=== PATIENT | female | born 1955 | race Caucasian/White ===

== ENCOUNTER 2017-01-09 20:22 | Inpatient (IN) | payer MEDICARE, OTHER ==
[~2017-01-09 20:22] MED LIST: ACET325T9 PO; ACYC200C PO; ASPI325T8 PO; BISA10SU2 RC; BISA10SU55 RC; CALC-56 PO; CALC500O PO; CALC500T PO; CALC500T54 PO; CELE50CA PO; CHOL10002 PO; CITA20TA9 PO; FELB400T2 PO; FERR-26 PO; FERR325T72 PO; LACO150T PO; LACO50TA PO; LEVE100020 PO; LEVE500T56 PO; LOPE2TAB27 PO; MAGN200T PO; MAGN2400 PO; MAGN400O7 PO; MAGN400T22 PO; MULT1TAB90 PO; OLAN2.5T3 PO; OXYC5TAB PO; PHEN32.42 PO; POLY119P4 PO; POLY17PO29 PO; POTA20TA4 PO; QUET25TA5 PO; SENN1TAB15 PO; SENN8.6C2 PO; TRAM50TA PO; VENL37.5 PO; VENL75CA PO
--- NOTE | 2017-01-09 20:27 | PHYS DOC ---
Past Medical History Past Medical History: Anemia, Arthritis, Constipation, Dementia, Depression, Hip Fracture, Seizure, UTI Additional Past Medical Histor: GENERAL DEBILITY, CHRONIC PAIN, hypokalemia Past Surgical History: Hip Replacement Additional Past Surgical Histo: STIMULATOR FOR SEIZURE CONTROL, R tibula fx Alcohol Use: None Drug Use: None Adult General Chief Complaint Chief Complaint: altered mental status [facility] Patient is a 61 year old female who presents with with mental status. According to the [place] facility patient is usually alert and oriented 3 she had a witnessed fall today and now is only alert to herself. She denies a headache, fevers chills nausea vomiting, neck stiffness, shortness of breath or chest pain. Review of Systems Review of Systems Constitutional: Denies fever or chills [] Eyes: Denies change in visual acuity, redness, or eye pain [] HENT: Denies nasal congestion or sore throat [] Respiratory: Denies cough or shortness of breath [] Cardiovascular: No additional information not addressed in HPI [] GI: Denies abdominal pain, nausea, vomiting, bloody stools or diarrhea [] : Denies dysuria or hematuria [] Musculoskeletal: Denies back pain or joint pain [] Integument: Denies rash or skin lesions [] Neurologic: Denies headache, focal weakness or sensory changes [] Endocrine: Denies polyuria or polydipsia [] Current Medications Current Medications Allergies Allergies Allergies Coded Allergies Type Severity Reaction Last Updated Verified clobazam Allergy Intermediate 12/17/15 Yes hydrocodone Allergy Intermediate 12/17/15 Yes vancomycin Allergy Intermediate 12/17/15 Yes Physical Exam Physical Exam Constitutional: Well developed, well nourished, no acute distress, non-toxic appearance. [] HENT: Normocephalic, atraumatic, bilateral external ears normal, oropharynx moist, no oral exudates, nose normal. [] Eyes: PERRLA, EOMI, conjunctiva normal, no discharge. [] Neck: Normal range of motion, no tenderness, supple, no stridor. [] Cardiovascular:Heart rate regular rhythm, no murmur [] Lungs & Thorax: Bilateral breath sounds clear to auscultation [] Abdomen: Bowel sounds normal, soft, no tenderness, no masses, no pulsatile masses. [] Skin: Warm, dry, no erythema, no rash. [] Back: No tenderness, no CVA tenderness. [] Extremities: No tenderness, no cyanosis, no clubbing, ROM intact, no edema. [] Neurologic: Alert and oriented X 1, normal motor function, normal sensory function, no focal deficits noted. [] Current Patient Data Vital Signs Vital Signs Date Time Temp Pulse Resp B/P (MAP) Pulse Ox O2 Delivery O2 Flow Rate FiO2 01/09/17 20:28 98.2 86 20 144/85 (104) 95 Room Air 98.2 Lab Values Laboratory Tests Test 01/09/17 21:43 01/09/17 21:55 O2 Saturation 94 % (92-99) Arterial Blood pH 7.44 (7.35-7.45) Arterial Blood pCO2 at Patient Temp 48 mmHg (35-46) H Arterial Blood pO2 at Patient Temp 74 mmHg (65-108) Arterial Blood HCO3 32 mmol/L (21-28) H Arterial Blood Base Excess 6 mmol/L (-3-3) H Oxyhemoglobin 93.7 % Methemoglobin 0.5 % (0.0-1.9) Carbon Monoxide, Quantitative 0.1 % (0.0-1.9) FiO2 21.0 Prothrombin Time 12.4 SEC (11.7-14.0) Prothrombin Time INR 1.0 (0.8-1.1) PTT 28 SEC (24-38) Urine Collection Type U cath Urine Color Yellow Urine Clarity Turbid Urine pH 8.0 Urine Specific [place] 1.025 Urine Protein Negative mg/dL (NEG-TRACE) Urine Glucose (UA) Negative mg/dL (NEG) Urine Ketones (Stick) Negative mg/dL (NEG) Urine Blood Negative (NEG) Urine Nitrite Positive (NEG) Urine Bilirubin Negative (NEG) Urine Urobilinogen Dipstick 0.2 mg/dL (0.2 mg/dL) Urine Leukocyte Esterase Small (NEG) Urine RBC 0 /HPF (0-2) Urine WBC 1-4 /HPF (0-4) Urine Squamous Epithelial Cells Few /LPF Urine Bacteria Many /HPF (0-FEW) Urine Mucus Slight /LPF Urine Opiates Screen Neg (NEG) Urine Methadone Screen Neg (NEG) Urine Barbiturates Pos (NEG) Urine Phencyclidine Screen Neg (NEG) Urine Amphetamine/Methamphetamine Neg (NEG) Urine Benzodiazepines Screen Neg (NEG) Urine Cocaine Screen Neg (NEG) Urine Cannabinoids Screen Neg (NEG) Urine Ethyl Alcohol Neg (NEG) EKG EKG EKG shows sinus rhythm with a rate of 85 bpm, no ST elevations or T-wave inversions appreciated, artifact noted in 1, aVR, aVL, lead 3, aVF, normal axis , QTC 407 ms, as interpreted by me. Radiology/Procedures Radiology/Procedures [facility] [address] [place] [address] IMAGING REPORT Signed PATIENT: KEVON ECKERT ACCOUNT: [id number] : 1955 LOCATION: ER AGE: 61 SEX: F EXAM STATUS: REG ER ORD. PHYSICIAN: LINDA BUSBY MD REASON: AMS after fall PROCEDURE: CT HEAD AND CERVICAL SPINE WO CT Head W/O Contrast: History: ams, fall Comparison: July 04, 2013 Axial images were obtained without contrast. There has been prior left craniotomy. There is moderate diffuse atrophy. There is no mass effect, extraaxial fluid collections or hydrocephalus. There is no gross bleed. Mild, patchy periventricular and subcortical white matter hypoattenuation is seen. There is no focal loss of lewis-white matter distinction to suggest acute ischemia, i.e. stroke. Impression: No acute findings. End impression CT C-Spine without contrast: Clinical History: ams, fall Technique: Axial helical images of the cervical spine were obtained without contrast, axial coronal and sagittal reconstruction was performed. Findings: There is no loss of vertebral body stature. There is no prevertebral soft tissue swelling. The vertebral bodies are well aligned. The C1-C2 relationship is normal. The visualized osseous structures appear normal. Evaluation of the central canal is limited without contrast. There is multiple posterior disc bulges resulting in flattening of the thecal sac. There does not appear to be gross flattening of the cervical cord. There is moderate narrowing of multiple neuroforamen. Impression: No acute findings. Clinical correlation suggested. PQRS Compliance Statement: One or more of the following individualized dose reduction techniques were utilized for this examination: 1. Automated exposure control 2. Adjustment of the mA and/or kV according to patient size 3. Use of iterative reconstruction technique Electronically signed by: Elsa Colunga III, MD (01/09/2017 9:13 PM) [facility] DICTATED and SIGNED BY: ELSA COLUNGA III, MD DATE: 01/09/172107 CC: LINDA BUSBY MD; TYLER OGDEN MD ~ Impressions: Altered mental status UTI Seizure disorder Course & Med Decision Making Course & Med Decision Making Pertinent Labs and Imaging studies reviewed. (See chart for details) CT head, chest x-ray nonacute, lactic acid and vitals within normal limits. Do not find any abnormalities on physical exam, her neck is supple, she is following directions but is just oriented 1. I've ordered blood cultures, urine does show signs of infection I recommend sure this is the actual source of her confusion. Per [facility] her confusion started after she fell. We'll start Rocephin and admit for monitoring. Interim orders have been written and spoke with Dr. Ogden. Kimi Disclaimer Kimi Disclaimer This electronic medical record was generated, in whole or in part, using a voice recognition dictation system. Departure Departure Impression: Primary Impression: Altered mental state Disposition: 09 ADMITTED INPATIENT Admitting Physician: Tyler Ogden Condition: STABLE Referrals: TYLER OGDEN MD (PCP) Problem Qualifiers Primary Impression: Altered mental state Altered mental status type: unspecified Qualified Codes: R41.82 - Altered mental status, unspecified LINDA BUSBY MD Jan 09, 2017 20:27
--- NOTE | 2017-01-09 21:16 | RAD ---
CT Head W/O Contrast: History: ams, fall Comparison: July 04, 2013 Axial images were obtained without contrast. There has been prior left craniotomy. There is moderate diffuse atrophy. There is no mass effect, extraaxial fluid collections or hydrocephalus. There is no gross bleed. Mild, patchy periventricular and subcortical white matter hypoattenuation is seen. There is no focal loss of lewis-white matter distinction to suggest acute ischemia, i.e. stroke. Impression: No acute findings. End impression CT C-Spine without contrast: Clinical History: ams, fall Technique: Axial helical images of the cervical spine were obtained without contrast, axial coronal and sagittal reconstruction was performed. Findings: There is no loss of vertebral body stature. There is no prevertebral soft tissue swelling. The vertebral bodies are well aligned. The C1-C2 relationship is normal. The visualized osseous structures appear normal. Evaluation of the central canal is limited without contrast. There is multiple posterior disc bulges resulting in flattening of the thecal sac. There does not appear to be gross flattening of the cervical cord. There is moderate narrowing of multiple neuroforamen. Impression: No acute findings. Clinical correlation suggested. PQRS Compliance Statement: One or more of the following individualized dose reduction techniques were utilized for this examination: 1. Automated exposure control 2. Adjustment of the mA and/or kV according to patient size 3. Use of iterative reconstruction technique Electronically signed by: Nnamdi Mcghee III, MD (01/09/2017 9:13 PM) [facility]
[2017-01-09 21:50] LABS: BASE EXCESS COOX 6 mmol/L (-3-3); CARBON MONOXIDE 0.1 % (0.0-1.9); HCO3 COOX 32 mmol/L (21-28); METHEMOGLOBIN 0.5 % (0.0-1.9); OXYHEMOGLOBIN 93.7 %; PCO2 COOX 48 mmHg (35-46); PO2 COOX 74 mmHg (65-108); SAT O2 COOX 94 % (92-99); TOTAL HEMOGLOBIN 13.7 g/dL
[2017-01-09 21:51] LABS: PH COOX 7.44 (7.35-7.45)
[2017-01-09 22:08] LABS: BILIRUBIN,URINE NEGATIVE (NEG); GLUCOSE,URINE NEGATIVE (NEG); NITRITE,URINE POSITIVE (NEG); PROTEIN,URINE NEGATIVE (NEG-TRACE); UROBILINOGEN,URINE 0.2 mg/dL (0.2 mg/dL)
[2017-01-09 22:11] LABS: PROTHROMBIN TIME PATIENT 12.4 SEC (11.7-14.0)
[2017-01-09 22:14] LABS: BACTERIA,URINE MANY /HPF (0-FEW); RBC,URINE 0 /HPF (0-2); SQUAMOUS EPITHELIAL CELL,UR FEW /LPF
[2017-01-09 22:21] LABS: BARBITURATES POS (NEG); BENZODIAZEPINES NEG (NEG); CANNABINOIDS NEG (NEG); COCAINE NEG (NEG); METHADONE NEG (NEG); OPIATES NEG (NEG); PHENCYCLIDINE NEG (NEG)
[2017-01-09 22:48] LABS: BASO % 1 % (0-3); EOS % 1 % (0-3); HEMOGLOBIN 12.6 g/dL (12.0-15.5); LYMPH # 0.8 x10^3/uL (1.0-4.8); LYMPH % 17 % (24-48); MEAN CORPUSCULAR HEMOGLOBIN 34 pg (25-35); MEAN CORPUSCULAR HGB CONC 35 g/dL (31-37); MEAN CORPUSCULAR VOLUME 98 fL (79-100); MONO % 8 % (0-9); NEUT % 74 % (31-73); PLATELET COUNT 185 x10^3/uL (140-400); RED BLOOD COUNT 3.68 x10^6/uL (3.50-5.40); RED CELL DISTRIBUTION WIDTH 12.8 % (11.5-14.5); WHITE BLOOD COUNT 5.1 x10^3/uL (4.0-11.0)
[2017-01-09 23:06] LABS: CREATININE 0.6 mg/dL (0.6-1.0); POTASSIUM 3.9 mmol/L (3.5-5.1)
[2017-01-09 23:15] LABS: CKMB MASS 0.7 ng/mL (0.0-3.6)
[2017-01-09 23:16] LABS: ALBUMIN 3.4 g/dL (3.4-5.0); DIRECT BILIRUBIN 0.1 mg/dL (0.0-0.2); TOTAL BILIRUBIN 0.2 mg/dL (0.2-1.0); TOTAL PROTEIN 6.6 g/dL (6.4-8.2)
[2017-01-09] MEDS ORDERED: IV DEXTROSE 5 %-0.45 % NACL 1,000 ML IV ONE (23:30)
[2017-01-09] MEDS ORDERED: ONDANSETRON PF 4 MG/2 ML VIAL. IV PRN (23:30)
[2017-01-10 01:18] VITALS: BP 119/57
[2017-01-10] MEDS ORDERED: ATOR10TA PO (01:52)
[2017-01-10] MEDS ORDERED: POTASSIUM CHLO10 MEQ PO (01:52)
[2017-01-10 03:22] VITALS: BP 112/63
[2017-01-10 04:32] LABS: BASO # 0.1 x10^3/uL (0.0-0.2); BASO % 1 % (0-3); EOS % 4 % (0-3); HEMATOCRIT 36.2 % (36.0-47.0); HEMOGLOBIN 12.2 g/dL (12.0-15.5); LYMPH # 1.5 x10^3/uL (1.0-4.8); LYMPH % 30 % (24-48); MEAN CORPUSCULAR HEMOGLOBIN 34 pg (25-35); MEAN CORPUSCULAR HGB CONC 34 g/dL (31-37); MEAN CORPUSCULAR VOLUME 101 fL (79-100); MONO % 11 % (0-9); NEUT % 53 % (31-73); PLATELET COUNT 171 x10^3/uL (140-400); RED CELL DISTRIBUTION WIDTH 12.8 % (11.5-14.5); WHITE BLOOD COUNT 5.1 x10^3/uL (4.0-11.0)
[2017-01-10 04:52] LABS: CALCIUM 8.5 mg/dL (8.5-10.1); CREATININE 0.6 mg/dL (0.6-1.0); POTASSIUM 3.4 mmol/L (3.5-5.1)
--- NOTE | 2017-01-10 05:36 | ACF ---
Admission Forms Criteria MENTAL STATUS CHANGE Clinical Indications for Inpatient Care (Place 'X' for any and all applicable criteria): Ongoing inpatient care may be needed for 1 or more of the following(1)(2)(3)(5)( 6): [ X]I. Suspected serious etiology (eg, medical disorder, NETWORK SUPPORT ADMINISTRATOR event) of altered mental status [ ]II. Danger to self or others not manageable at lower level of care [ ]III. Grave disability (eg, inability to perform self care necessary at lower level of care) [ ]IV. Agitation or inappropriate behavior interfering with care for primary condition (eg, attempting to discontinue lines or drains prematurely, unable to cooperate with respiratory care) [ ]V. Delirium [A] [D][E] as described by 1 or more of the following(26): [ ]a) Delirium due to alcohol or sedative [F] withdrawal [ ]b) Delirium of uncertain etiology that has not responded to appropriate empiric treatment [ ]c) Delirium that prevents performance of a life-sustaining function (eg, feeding or hydrating oneself) [ ]. General contraindications and/or Inappropriate clinical situations for Observational Care in patients with Mental Status Change, when ANY ONE of the following is required: [ ]a) Prediction of prolongation of LOS based on ANY ONE of the following may be considered as a contraindication for observational care 2, 3, 4, 5, 6, 7, 8, 9, 10, 11 [ ]i) Age > 65 yrs. [ ]ii) Patient arriving by ambulance [ ]iii) Patient with high acuity [ ]iv) Patient requiring vital sign monitoring [ ]v) Patient on IV medication [ ]b) Systolic blood pressures greater than or equal to 180mmHg 3, 12 [ ]c) Patient with altered mental status including delirium and other alteration of consciousness, (3) [ ]d) Patient whose discharge disposition will be to a fdc home or rehabilitation home should not be managed in Emergency Department Observation Unit. CMS rule requires 3 days hospital stay before such placement.3,13 [ ]e) Patient with failure to thrive due to broad array of etiologies 3,16,17 [ ]f) Inability to ambulate 3,14 Extended stay beyond goal length of stay for the primary condition may be needed until ALL of the following are present(3)(5): [ ]a) Underlying medical etiology of mental status change is absent, or has been established and adequately treated [ ]b) Danger to self or others is absent or manageable at lower level of care. [ ]c) Behavior crisis management, including physical or chemical restraints, is not required or available at lower level of car [ ]d) Substance or alcohol withdrawal is absent or manageable at lower level of care. [ ]e) Behavioral symptoms (eg, agitation, somnolence, inappropriate behavior) are absent, or are manageable at lower level of care. The original [facility] [employer] content created by [facility] has been revised. The portions of the content which have been revised are identified through the use of italic text or in bold, and [facility] has neither reviewed nor approved the modified material. All other unmodified content is copyright [facility]. Please see references footnoted in the original [facility] edition 2016 Admission Criteria Met?: Yes AMINATA BOONE Jan 10, 2017 05:36
--- NOTE | 2017-01-10 06:12 | EKG ---
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
--- NOTE | 2017-01-10 06:21 | EKG ---
[facility] [address] [place] [address] Test Date: 2017-01-09 Test Time: 21:39:02 Pat Name: KEVON ECKERT Department: Room: 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
--- NOTE | 2017-01-10 07:23 | RAD ---
Exam performed: One view chest. Indication: AMS Date of Service: 01/09/2017 10:30 PM Comparison: None available. Single AP upright portable view chest findings: Cardiomediastinal silhouette is within limits of normal. No acute infiltrates, effusion or pneumothorax is detected. There is a bilaterally PAC with a lead extending into the neck. The bony structures are normal. Impression: No acute cardiopulmonary process is detected.
[2017-01-10 07:45] VITALS: BP 114/74
--- NOTE | 2017-01-10 09:28 | PDOC ---
Provider Note Provider Note Patient seen. see History and Physical. Mental status already improving. Patient denies any seizures. Possible UTI. The patient was seen and examined by me. Chart reviewed and plan of care formulated. Discussed with, reviewed and agree with MANUFACTURER REPRESENTATIVE's notes, plan of care and orders with modifications as necessary. For more details regarding further plans, please refer to the orders. JENI TORRES MD Jan 10, 2017 09:27
[2017-01-10] MEDS ORDERED: POLYETHYLENE GLYCOL 3350 17 GM PACKET. PO PRN (09:30)
[2017-01-10] MEDS ORDERED: MAGNESIUM HYDROXIDE 2,400 MG/30 ML ORAL.SUSP. PO PRN (09:30)
[2017-01-10] MEDS ORDERED: ACETAMINOPHEN 325 MG TABLET. PO PRN (09:30)
[2017-01-10] MEDS ORDERED: SENNOSIDES/DOCUSATE 8.6/50MG TABLET. PO PRN (09:30)
[2017-01-10] MEDS ORDERED: BISACODYL 10 MG SUPP.RECT. RC SCH (09:30)
--- NOTE | 2017-01-10 09:57 | PDOC1 ---
HISTORY AND PHYSICAL Chief Complaint Chief Complaint This 61 year old female has been admitted with a chief complaint of altered mental status after witnessed fall. She has a history of seizures with falls. EMS transferred her to [facility] ED. In the ED she was responsive to name only. A CT of the head was negative. CT of the cervical spine negative. UA was positive for nitrate. She received IVF and Rocephin in the ED and is admitted for further evaluation and treatment. 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 ) Musculoskeletal: Other (h/o tib fib fracture post fall; hip fracture ) Renal/: Chronic renal insuff (CKD II ), UTI (h/o ) Past Surgical History Past Surgical History: Total hip replacement Past Family History Family History: Family History Unknown Past Social History PSH no h/o tobacco, ETOH or illicit drug use. Review of Symptoms Review of Symptoms A 14 point ROS was completed with the following noted as positive: nods no to pain, not communicative. Other systems reviewed and negative. attempted, not cooperating Medications Medications reviewed and reconciled. Allergy Allergies Coded Allergies Type Severity Reaction Last Updated Verified clobazam Allergy Intermediate 12/17/15 Yes hydrocodone Allergy Intermediate 12/17/15 Yes vancomycin Allergy Intermediate 12/17/15 Yes Physical Exam Physical Exam General appearance - alert, chronically ill appearing, and in no distress Mental Status - alert, oriented to person, place, and time, affect appropriate to mood Head - normal Chest - clear to auscultation, no wheezes, rales or rhonchi, symmetric air entry Heart - S1 and S2 normal Abdomen - soft, nontender, nondistended, BS + Neurological - no acute neurological deficit deficit noted. Musculoskeletal - no muscular tenderness noted Extremities - no pedal edema Skin - warm and dry VTE Prophylaxis Ordered VTE Prophylaxis Devices: Yes VTE Pharmacological Prophylaxi: No Assessment Labs Laboratory Tests Test 01/09/17 21:43 01/09/17 21:55 01/09/17 22:35 01/10/17 03:50 O2 Saturation 94 % (92-99) Arterial Blood pH 7.44 (7.35-7.45) Arterial Blood pCO2 at Patient Temp 48 mmHg (35-46) Arterial Blood pO2 at Patient Temp 74 mmHg (65-108) Arterial Blood HCO3 32 mmol/L (21-28) Arterial Blood Base Excess 6 mmol/L (-3-3) Oxyhemoglobin 93.7 % Methemoglobin 0.5 % (0.0-1.9) Carbon Monoxide, Quantitative 0.1 % (0.0-1.9) FiO2 21.0 Prothrombin Time 12.4 SEC (11.7-14.0) Prothromb Time International Ratio 1.0 (0.8-1.1) Activated Partial Thromboplast Time 28 SEC (24-38) Urine Collection Type U cath Urine Color Yellow Urine Clarity Turbid Urine pH 8.0 Urine Specific [place] 1.025 Urine Protein Negative mg/dL (NEG-TRACE) Urine Glucose (UA) Negative mg/dL (NEG) Urine Ketones (Stick) Negative mg/dL (NEG) Urine Blood Negative (NEG) Urine Nitrite Positive (NEG) Urine Bilirubin Negative (NEG) Urine Urobilinogen Dipstick 0.2 mg/dL (0.2 mg/dL) Urine Leukocyte Esterase Small (NEG) Urine RBC 0 /HPF (0-2) Urine WBC 1-4 /HPF (0-4) Urine Squamous Epithelial Cells Few /LPF Urine Bacteria Many /HPF (0-FEW) Urine Mucus Slight /LPF Urine Opiates Screen Neg (NEG) Urine Methadone Screen Neg (NEG) Urine Barbiturates Pos (NEG) Urine Phencyclidine Screen Neg (NEG) Urine Amphetamine/Methamphetamine Neg (NEG) Urine Benzodiazepines Screen Neg (NEG) Urine Cocaine Screen Neg (NEG) Urine Cannabinoids Screen Neg (NEG) Urine Ethyl Alcohol Neg (NEG) White Blood Count 5.1 x10^3/uL (4.0-11.0) 5.1 x10^3/uL (4.0-11.0) Red Blood Count 3.68 x10^6/uL (3.50-5.40) 3.60 x10^6/uL (3.50-5.40) Hemoglobin 12.6 g/dL (12.0-15.5) 12.2 g/dL (12.0-15.5) Hematocrit 36.0 % (36.0-47.0) 36.2 % (36.0-47.0) Mean Corpuscular Volume 98 fL (79-100) 101 fL (79-100) Mean Corpuscular Hemoglobin 34 pg (25-35) 34 pg (25-35) Mean Corpuscular Hemoglobin Concent 35 g/dL (31-37) 34 g/dL (31-37) Red Cell Distribution Width 12.8 % (11.5-14.5) 12.8 % (11.5-14.5) Platelet Count 185 x10^3/uL (140-400) 171 x10^3/uL (140-400) Neutrophils (%) (Auto) 74 % (31-73) 53 % (31-73) Lymphocytes (%) (Auto) 17 % (24-48) 30 % (24-48) Monocytes (%) (Auto) 8 % (0-9) 11 % (0-9) Eosinophils (%) (Auto) 1 % (0-3) 4 % (0-3) Basophils (%) (Auto) 1 % (0-3) 1 % (0-3) Neutrophils # (Auto) 3.7 x10^3uL (1.8-7.7) 2.7 x10^3uL (1.8-7.7) Lymphocytes # (Auto) 0.8 x10^3/uL (1.0-4.8) 1.5 x10^3/uL (1.0-4.8) Monocytes # (Auto) 0.4 x10^3/uL (0.0-1.1) 0.6 x10^3/uL (0.0-1.1) Eosinophils # (Auto) 0.1 x10^3/uL (0.0-0.7) 0.2 x10^3/uL (0.0-0.7) Basophils # (Auto) 0.0 x10^3/uL (0.0-0.2) 0.1 x10^3/uL (0.0-0.2) Sodium Level 141 mmol/L (136-145) 140 mmol/L (136-145) Potassium Level 3.9 mmol/L (3.5-5.1) 3.4 mmol/L (3.5-5.1) Chloride Level 104 mmol/L (98-107) 103 mmol/L (98-107) Carbon Dioxide Level 30 mmol/L (21-32) 32 mmol/L (21-32) Anion Gap 7 (6-14) 5 (6-14) Blood Urea Nitrogen 20 mg/dL (7-20) 19 mg/dL (7-20) Creatinine 0.6 mg/dL (0.6-1.0) 0.6 mg/dL (0.6-1.0) Estimated GFR (Cockcroft-Gault) 101.0 101.0 Glucose Level 112 mg/dL (70-99) 104 mg/dL (70-99) Lactic Acid Level 0.7 mmol/L (0.4-2.0) Calcium Level 9.0 mg/dL (8.5-10.1) 8.5 mg/dL (8.5-10.1) Magnesium Level 2.0 mg/dL (1.8-2.4) Total Bilirubin 0.2 mg/dL (0.2-1.0) Direct Bilirubin 0.1 mg/dL (0.0-0.2) Aspartate Amino Transf (AST/SGOT) 35 U/L (15-37) Alanine Aminotransferase (ALT/SGPT) 41 U/L (14-59) Alkaline Phosphatase 153 U/L (46-116) Ammonia 23 mcmol/L (11-34) Creatine Kinase 155 U/L (26-192) Creatine Kinase MB (Mass) 0.7 ng/mL (0.0-3.6) Creatine Kinase MB Relative Index 0.5 % (0-4) Troponin I Quantitative < 0.017 ng/mL (0.000-0.055) EG-Kdc-Q-Type Natriuretic Peptide 67 pg/mL (0-124) Total Protein 6.6 g/dL (6.4-8.2) Albumin 3.4 g/dL (3.4-5.0) Laboratory Tests Test 01/09/17 21:43 01/09/17 21:55 01/09/17 22:35 01/10/17 03:50 O2 Saturation 94 % (92-99) Arterial Blood pH 7.44 (7.35-7.45) Arterial Blood pCO2 at Patient Temp 48 mmHg (35-46) Arterial Blood pO2 at Patient Temp 74 mmHg (65-108) Arterial Blood HCO3 32 mmol/L (21-28) Arterial Blood Base Excess 6 mmol/L (-3-3) Oxyhemoglobin 93.7 % Methemoglobin 0.5 % (0.0-1.9) Carbon Monoxide, Quantitative 0.1 % (0.0-1.9) FiO2 21.0 Prothrombin Time 12.4 SEC (11.7-14.0) Prothromb Time International Ratio 1.0 (0.8-1.1) Activated Partial Thromboplast Time 28 SEC (24-38) Urine Collection Type U cath Urine Color Yellow Urine Clarity Turbid Urine pH 8.0 Urine Specific [place] 1.025 Urine Protein Negative mg/dL (NEG-TRACE) Urine Glucose (UA) Negative mg/dL (NEG) Urine Ketones (Stick) Negative mg/dL (NEG) Urine Blood Negative (NEG) Urine Nitrite Positive (NEG) Urine Bilirubin Negative (NEG) Urine Urobilinogen Dipstick 0.2 mg/dL (0.2 mg/dL) Urine Leukocyte Esterase Small (NEG) Urine RBC 0 /HPF (0-2) Urine WBC 1-4 /HPF (0-4) Urine Squamous Epithelial Cells Few /LPF Urine Bacteria Many /HPF (0-FEW) Urine Mucus Slight /LPF Urine Opiates Screen Neg (NEG) Urine Methadone Screen Neg (NEG) Urine Barbiturates Pos (NEG) Urine Phencyclidine Screen Neg (NEG) Urine Amphetamine/Methamphetamine Neg (NEG) Urine Benzodiazepines Screen Neg (NEG) Urine Cocaine Screen Neg (NEG) Urine Cannabinoids Screen Neg (NEG) Urine Ethyl Alcohol Neg (NEG) White Blood Count 5.1 x10^3/uL (4.0-11.0) 5.1 x10^3/uL (4.0-11.0) Red Blood Count 3.68 x10^6/uL (3.50-5.40) 3.60 x10^6/uL (3.50-5.40) Hemoglobin 12.6 g/dL (12.0-15.5) 12.2 g/dL (12.0-15.5) Hematocrit 36.0 % (36.0-47.0) 36.2 % (36.0-47.0) Mean Corpuscular Volume 98 fL (79-100) 101 fL (79-100) Mean Corpuscular Hemoglobin 34 pg (25-35) 34 pg (25-35) Mean Corpuscular Hemoglobin Concent 35 g/dL (31-37) 34 g/dL (31-37) Red Cell Distribution Width 12.8 % (11.5-14.5) 12.8 % (11.5-14.5) Platelet Count 185 x10^3/uL (140-400) 171 x10^3/uL (140-400) Neutrophils (%) (Auto) 74 % (31-73) 53 % (31-73) Lymphocytes (%) (Auto) 17 % (24-48) 30 % (24-48) Monocytes (%) (Auto) 8 % (0-9) 11 % (0-9) Eosinophils (%) (Auto) 1 % (0-3) 4 % (0-3) Basophils (%) (Auto) 1 % (0-3) 1 % (0-3) Neutrophils # (Auto) 3.7 x10^3uL (1.8-7.7) 2.7 x10^3uL (1.8-7.7) Lymphocytes # (Auto) 0.8 x10^3/uL (1.0-4.8) 1.5 x10^3/uL (1.0-4.8) Monocytes # (Auto) 0.4 x10^3/uL (0.0-1.1) 0.6 x10^3/uL (0.0-1.1) Eosinophils # (Auto) 0.1 x10^3/uL (0.0-0.7) 0.2 x10^3/uL (0.0-0.7) Basophils # (Auto) 0.0 x10^3/uL (0.0-0.2) 0.1 x10^3/uL (0.0-0.2) Sodium Level 141 mmol/L (136-145) 140 mmol/L (136-145) Potassium Level 3.9 mmol/L (3.5-5.1) 3.4 mmol/L (3.5-5.1) Chloride Level 104 mmol/L (98-107) 103 mmol/L (98-107) Carbon Dioxide Level 30 mmol/L (21-32) 32 mmol/L (21-32) Anion Gap 7 (6-14) 5 (6-14) Blood Urea Nitrogen 20 mg/dL (7-20) 19 mg/dL (7-20) Creatinine 0.6 mg/dL (0.6-1.0) 0.6 mg/dL (0.6-1.0) Estimated GFR (Cockcroft-Gault) 101.0 101.0 Glucose Level 112 mg/dL (70-99) 104 mg/dL (70-99) Lactic Acid Level 0.7 mmol/L (0.4-2.0) Calcium Level 9.0 mg/dL (8.5-10.1) 8.5 mg/dL (8.5-10.1) Magnesium Level 2.0 mg/dL (1.8-2.4) Total Bilirubin 0.2 mg/dL (0.2-1.0) Direct Bilirubin 0.1 mg/dL (0.0-0.2) Aspartate Amino Transf (AST/SGOT) 35 U/L (15-37) Alanine Aminotransferase (ALT/SGPT) 41 U/L (14-59) Alkaline Phosphatase 153 U/L (46-116) Ammonia 23 mcmol/L (11-34) Creatine Kinase 155 U/L (26-192) Creatine Kinase MB (Mass) 0.7 ng/mL (0.0-3.6) Creatine Kinase MB Relative Index 0.5 % (0-4) Troponin I Quantitative < 0.017 ng/mL (0.000-0.055) YB-Qvc-U-Type Natriuretic Peptide 67 pg/mL (0-124) Total Protein 6.6 g/dL (6.4-8.2) Albumin 3.4 g/dL (3.4-5.0) Plan Plan IMPRESSION: 1. UTI 2. Seizure with post ictal state present in ER 3. fall with h/o frequent falls associated with seizure 4. Dementia. 5. Depression moderate recurrent with psychotic symptoms 6. History THR post hip fracture 7. h/o right ankle fracture acute traumatic secondary to fall s/p nailing R tibia internal fixation R fib 05/27/15 8. depression 9. h/o anemia Fe, chronic 10. moderate chronic PCL malnutrition 11. CKD II 12. hyperlipidemia 13. cognitive communications deficit 14. hypokalemia POA PLAN: UTI continue rocephin c/s pending seizure disorder continue meds seizure precautions non injury fall fall precautions DVT/GI prophylaxis SCD/Lelo PPI For more details regarding further plans, please refer to the orders. CATA RUIZ APRN Jan 10, 2017 09:57
[2017-01-10] MEDS ORDERED: CEFTRIAXONE 1GM IVPB FOR OMNI 50 ML IV SCH (10:00)
[2017-01-10] MEDS: LACOSAMIDE 200 MG TABLET PO SCH ×2 (10:22→21:53)
[2017-01-10] MEDS: POTASSIUM CHLORIDE 10 MEQ TABLET.ER. PO SCH (10:22)
[2017-01-10] MEDS: levETIRAcetam 500 MG TABLET PO SCH ×2 (10:22→21:52)
[2017-01-10] MEDS: CHOLECALCIFEROL (VITAMIN D3) 1,000 UNIT TABLET PO SCH (10:22)
[2017-01-10] MEDS: MULTIVITAMIN with MINERAL TABLET. PO SCH (10:22)
[2017-01-10] MEDS: FELBAMATE 400 MG TABLET PO SCH ×3 (10:38→21:52)
[2017-01-10 11:03] VITALS: BP 114/76
[2017-01-10] MEDS ORDERED: POTASSIUM CHLORIDE 10 MEQ TABLET.ER. PO ONE (12:00)
[2017-01-10] MEDS: MAGNESIUM OXIDE 400 MG TABLET PO SCH ×2 (14:35→21:52)
[2017-01-10 15:25] VITALS: BP 111/73
[2017-01-10] MEDS: FERROUS SULFATE 325 MG TABLET. PO SCH (17:54)
[2017-01-10 19:56] VITALS: BP 115/70
[2017-01-10] MEDS ORDERED: QUEtiapine 25 MG TABLET. PO SCH (21:00)
[2017-01-10] MEDS ORDERED: ATORVASTATIN CALCIUM 10 MG TABLET. PO SCH (21:00)
[2017-01-10] MEDS ORDERED: PHENobarbital 32.4 MG TABLET. PO SCH (21:00)
[2017-01-10] MEDS ORDERED: VENLAFAXINE XR 37.5 MG CAP.ER.24H. PO SCH (21:00)
[2017-01-10] MEDS: CALCIUM CARBONATE 500 MG TAB.CHEW PO SCH (21:53)
[2017-01-11 03:39] VITALS: BP 120/64
[2017-01-11 04:22] LABS: BASO # 0.1 x10^3/uL (0.0-0.2); BASO % 1 % (0-3); EOS % 10 % (0-3); HEMATOCRIT 34.7 % (36.0-47.0); LYMPH # 1.4 x10^3/uL (1.0-4.8); LYMPH % 34 % (24-48); MEAN CORPUSCULAR HEMOGLOBIN 35 pg (25-35); MEAN CORPUSCULAR HGB CONC 35 g/dL (31-37); MEAN CORPUSCULAR VOLUME 100 fL (79-100); MONO % 12 % (0-9); NEUT % 43 % (31-73); PLATELET COUNT 160 x10^3/uL (140-400); RED BLOOD COUNT 3.47 x10^6/uL (3.50-5.40); RED CELL DISTRIBUTION WIDTH 12.9 % (11.5-14.5)
[2017-01-11 04:30] LABS: CALCIUM 8.5 mg/dL (8.5-10.1); CREATININE 0.7 mg/dL (0.6-1.0); GFR 84.5; MAGNESIUM 1.8 mg/dL (1.8-2.4); POTASSIUM 3.8 mmol/L (3.5-5.1)
[2017-01-11 06:56] VITALS: BP 119/62
[2017-01-11] MEDS: FERROUS SULFATE 325 MG TABLET. PO SCH (08:00)
[2017-01-11] MEDS: POTASSIUM CHLORIDE 10 MEQ TABLET.ER. PO SCH (08:00)
[2017-01-11] MEDS: MULTIVITAMIN with MINERAL TABLET. PO SCH (08:30)
[2017-01-11] MEDS: FELBAMATE 400 MG TABLET PO SCH ×2 (08:30→13:51)
[2017-01-11] MEDS: levETIRAcetam 500 MG TABLET PO SCH (08:30)
[2017-01-11] MEDS: MAGNESIUM OXIDE 400 MG TABLET PO SCH ×2 (08:30→13:52)
[2017-01-11] MEDS: CALCIUM CARBONATE 500 MG TAB.CHEW PO SCH (08:30)
[2017-01-11] MEDS: CHOLECALCIFEROL (VITAMIN D3) 1,000 UNIT TABLET PO SCH (08:30)
[2017-01-11] MEDS: LACOSAMIDE 200 MG TABLET PO SCH (08:30)
--- NOTE | 2017-01-11 09:23 | PDOC3 ---
IM DISCHARGE & PROGRESS NOTES Date of Admission Date of Admission Date of Admission: Jan 09, 2017 at 22:25 Date of Discharge Date of Discharge 01/11/17 Primary Diagnosis Primary Diagnosis IMPRESSION: 1. UTI no sepsis 2. Seizure prior to admit- post ictal state present in ER 3. fall with h/o frequent falls associated with seizure 4. Dementia. 5. Depression moderate recurrent with psychotic symptoms 6. History THR post hip fracture 7. h/o right ankle fracture acute traumatic secondary to fall s/p nailing R tibia internal fixation R fib 05/27/15 8. depression 9. h/o anemia Fe, chronic 10. moderate chronic PCL malnutrition 11. CKD II 12. hyperlipidemia 13. cognitive communications deficit 14. hypokalemia POA Consults Consults None Procedures Procedures None Labs Labs Laboratory Tests Test 01/09/17 21:43 01/09/17 21:55 01/09/17 22:35 01/10/17 03:50 O2 Saturation 94 % (92-99) Arterial Blood pH 7.44 (7.35-7.45) Arterial Blood pCO2 at Patient Temp 48 mmHg (35-46) Arterial Blood pO2 at Patient Temp 74 mmHg (65-108) Arterial Blood HCO3 32 mmol/L (21-28) Arterial Blood Base Excess 6 mmol/L (-3-3) Oxyhemoglobin 93.7 % Methemoglobin 0.5 % (0.0-1.9) Carbon Monoxide, Quantitative 0.1 % (0.0-1.9) FiO2 21.0 Prothrombin Time 12.4 SEC (11.7-14.0) Prothromb Time International Ratio 1.0 (0.8-1.1) Activated Partial Thromboplast Time 28 SEC (24-38) Urine Collection Type U cath Urine Color Yellow Urine Clarity Turbid Urine pH 8.0 Urine Specific [place] 1.025 Urine Protein Negative mg/dL (NEG-TRACE) Urine Glucose (UA) Negative mg/dL (NEG) Urine Ketones (Stick) Negative mg/dL (NEG) Urine Blood Negative (NEG) Urine Nitrite Positive (NEG) Urine Bilirubin Negative (NEG) Urine Urobilinogen Dipstick 0.2 mg/dL (0.2 mg/dL) Urine Leukocyte Esterase Small (NEG) Urine RBC 0 /HPF (0-2) Urine WBC 1-4 /HPF (0-4) Urine Squamous Epithelial Cells Few /LPF Urine Bacteria Many /HPF (0-FEW) Urine Mucus Slight /LPF Urine Opiates Screen Neg (NEG) Urine Methadone Screen Neg (NEG) Urine Barbiturates Pos (NEG) Urine Phencyclidine Screen Neg (NEG) Urine Amphetamine/Methamphetamine Neg (NEG) Urine Benzodiazepines Screen Neg (NEG) Urine Cocaine Screen Neg (NEG) Urine Cannabinoids Screen Neg (NEG) Urine Ethyl Alcohol Neg (NEG) White Blood Count 5.1 x10^3/uL (4.0-11.0) 5.1 x10^3/uL (4.0-11.0) Red Blood Count 3.68 x10^6/uL (3.50-5.40) 3.60 x10^6/uL (3.50-5.40) Hemoglobin 12.6 g/dL (12.0-15.5) 12.2 g/dL (12.0-15.5) Hematocrit 36.0 % (36.0-47.0) 36.2 % (36.0-47.0) Mean Corpuscular Volume 98 fL (79-100) 101 fL (79-100) Mean Corpuscular Hemoglobin 34 pg (25-35) 34 pg (25-35) Mean Corpuscular Hemoglobin Concent 35 g/dL (31-37) 34 g/dL (31-37) Red Cell Distribution Width 12.8 % (11.5-14.5) 12.8 % (11.5-14.5) Platelet Count 185 x10^3/uL (140-400) 171 x10^3/uL (140-400) Neutrophils (%) (Auto) 74 % (31-73) 53 % (31-73) Lymphocytes (%) (Auto) 17 % (24-48) 30 % (24-48) Monocytes (%) (Auto) 8 % (0-9) 11 % (0-9) Eosinophils (%) (Auto) 1 % (0-3) 4 % (0-3) Basophils (%) (Auto) 1 % (0-3) 1 % (0-3) Neutrophils # (Auto) 3.7 x10^3uL (1.8-7.7) 2.7 x10^3uL (1.8-7.7) Lymphocytes # (Auto) 0.8 x10^3/uL (1.0-4.8) 1.5 x10^3/uL (1.0-4.8) Monocytes # (Auto) 0.4 x10^3/uL (0.0-1.1) 0.6 x10^3/uL (0.0-1.1) Eosinophils # (Auto) 0.1 x10^3/uL (0.0-0.7) 0.2 x10^3/uL (0.0-0.7) Basophils # (Auto) 0.0 x10^3/uL (0.0-0.2) 0.1 x10^3/uL (0.0-0.2) Sodium Level 141 mmol/L (136-145) 140 mmol/L (136-145) Potassium Level 3.9 mmol/L (3.5-5.1) 3.4 mmol/L (3.5-5.1) Chloride Level 104 mmol/L (98-107) 103 mmol/L (98-107) Carbon Dioxide Level 30 mmol/L (21-32) 32 mmol/L (21-32) Anion Gap 7 (6-14) 5 (6-14) Blood Urea Nitrogen 20 mg/dL (7-20) 19 mg/dL (7-20) Creatinine 0.6 mg/dL (0.6-1.0) 0.6 mg/dL (0.6-1.0) Estimated GFR (Cockcroft-Gault) 101.0 101.0 Glucose Level 112 mg/dL (70-99) 104 mg/dL (70-99) Lactic Acid Level 0.7 mmol/L (0.4-2.0) Calcium Level 9.0 mg/dL (8.5-10.1) 8.5 mg/dL (8.5-10.1) Magnesium Level 2.0 mg/dL (1.8-2.4) Total Bilirubin 0.2 mg/dL (0.2-1.0) Direct Bilirubin 0.1 mg/dL (0.0-0.2) Aspartate Amino Transf (AST/SGOT) 35 U/L (15-37) Alanine Aminotransferase (ALT/SGPT) 41 U/L (14-59) Alkaline Phosphatase 153 U/L (46-116) Ammonia 23 mcmol/L (11-34) Creatine Kinase 155 U/L (26-192) Creatine Kinase MB (Mass) 0.7 ng/mL (0.0-3.6) Creatine Kinase MB Relative Index 0.5 % (0-4) Troponin I Quantitative < 0.017 ng/mL (0.000-0.055) GK-Fzs-K-Type Natriuretic Peptide 67 pg/mL (0-124) Total Protein 6.6 g/dL (6.4-8.2) Albumin 3.4 g/dL (3.4-5.0) Test 01/10/17 04:00 01/11/17 03:50 Nasal Screen MRSA (PCR) Negative (Negative) White Blood Count 4.0 x10^3/uL (4.0-11.0) Red Blood Count 3.47 x10^6/uL (3.50-5.40) Hemoglobin 12.0 g/dL (12.0-15.5) Hematocrit 34.7 % (36.0-47.0) Mean Corpuscular Volume 100 fL (79-100) Mean Corpuscular Hemoglobin 35 pg (25-35) Mean Corpuscular Hemoglobin Concent 35 g/dL (31-37) Red Cell Distribution Width 12.9 % (11.5-14.5) Platelet Count 160 x10^3/uL (140-400) Neutrophils (%) (Auto) 43 % (31-73) Lymphocytes (%) (Auto) 34 % (24-48) Monocytes (%) (Auto) 12 % (0-9) Eosinophils (%) (Auto) 10 % (0-3) Basophils (%) (Auto) 1 % (0-3) Neutrophils # (Auto) 1.7 x10^3uL (1.8-7.7) Lymphocytes # (Auto) 1.4 x10^3/uL (1.0-4.8) Monocytes # (Auto) 0.5 x10^3/uL (0.0-1.1) Eosinophils # (Auto) 0.4 x10^3/uL (0.0-0.7) Basophils # (Auto) 0.1 x10^3/uL (0.0-0.2) Sodium Level 141 mmol/L (136-145) Potassium Level 3.8 mmol/L (3.5-5.1) Chloride Level 105 mmol/L (98-107) Carbon Dioxide Level 31 mmol/L (21-32) Anion Gap 5 (6-14) Blood Urea Nitrogen 19 mg/dL (7-20) Creatinine 0.7 mg/dL (0.6-1.0) Estimated GFR (Cockcroft-Gault) 84.5 Glucose Level 97 mg/dL (70-99) Calcium Level 8.5 mg/dL (8.5-10.1) Magnesium Level 1.8 mg/dL (1.8-2.4) Medications Medications Medications reviewed and reconciled for discharge. Brief hospital course Brief hospital course This 61 year old female who presented with altered mental status was admitted. The following is a summary of her treatment: UTI continue rocephin c/s 50,000-100,000 grm neg rods Vantin 200mg at discharge for 7 days. seizure disorder continue meds seizure precautions stable non injury fall fall precautions DVT/GI prophylaxis SCD/Lelo PPI For more details regarding the past history, family history, social history, surgical history and other details, please refer to History and Physical. Follow up on the urine culture by [place] to confirm antibiotic sensitive to the gram neg nakul. Please see DC orders. Subjective awake, interactive, smiling Objective alert Vitals Vital Signs Date Time Temp Pulse Resp B/P (MAP) Pulse Ox O2 Delivery O2 Flow Rate FiO2 01/11/17 06:56 98.1 72 16 119/62 (81) 93 Room Air 98.1 Physical Exam General appearance - alert,well appearing, and in no distress and oriented to person, place, and time Mental Status - alert, oriented to person, place, and time, affect appropriate to mood Head - normal Chest - clear to auscultation, no wheezes, rales or rhonchi, symmetric air entry Heart - S1 and S2 normal Abdomen - soft, nontender, nondistended, no masses or organomegaly Neurological - no acute focal neurological deficits noted. Musculoskeletal - no muscular tenderness noted Extremities - no pedal edema Skin - warm and dry Medications Medications reviewed. Allergy Allergies Coded Allergies Type Severity Reaction Last Updated Verified clobazam Allergy Intermediate 12/17/15 Yes hydrocodone Allergy Intermediate 12/17/15 Yes vancomycin Allergy Intermediate 12/17/15 Yes Follow up in 5 days. Disposition: Home (assisted ) Comments Discharge Management - 35 minutes. For other details please refer to discharge instructions CATA RUIZ APRN Jan 11, 2017 09:23
--- NOTE | 2017-01-11 09:26 | DISCH ---
DISCHARGE INSTRUCTIONS Condition on Discharge Condition on Discharge: Stable Activity After Discharge Activity Instructions for Disc: Activity as tolerated Diet after Discharge Diet after Discharge: Cardiac Checks after Discharge DC Comment: VS per routine Contacting the DRYfn after DC Call your doctor for: Concerns you may have Follow-Up Follow up with: Admit to facility MD Follow Up With: CBC with diff, CMP, prealbumin in AM after admit Treatment/Equipment after DC Adaptive Equipment Issued: CATA Lizama APRN Jan 11, 2017 09:26
[2017-01-11] MEDS ORDERED: PHEN32.42 PO (09:32)
[2017-01-11] MEDS ORDERED: MAGN400T22 PO (09:32)
[2017-01-11] MEDS ORDERED: CEFP200T PO (09:32)
[2017-01-11] MEDS ORDERED: VENL37.5 PO (09:32)
[2017-01-11 10:50] VITALS: BP 102/67
[2017-01-11 15:00] VITALS: BP 115/77
== END 2017-01-11 15:20 | DRG 690 ==
LOC: ER 20:22 → 6 SOUTH 22:25
PROVIDERS: ADMIT Internal Medicine; ATTEND Internal Medicine
DX: N39.0 Urinary tract infection, site not specified (principal); E44.0 Moderate protein-calorie malnutrition; F03.90 Unspecified dementia, unspecified severity, without behavioral disturbance, psychotic disturbance, mood disturbance, and anxiety; W19.XXXA Unspecified fall, initial encounter; N18.2 Chronic kidney disease, stage 2 (mild); E87.6 Hypokalemia; E78.5 Hyperlipidemia, unspecified; F32.9 Major depressive disorder, single episode, unspecified; G40.909 Epilepsy, unspecified, not intractable, without status epilepticus; Z96.649 Presence of unspecified artificial hip joint; D50.9 Iron deficiency anemia, unspecified; M19.90 Unspecified osteoarthritis, unspecified site; G89.29 Other chronic pain; R29.6 Repeated falls; Z91.81 History of falling
CPT/HCPCS: 36415; 36600; 70450; 71010; 72125; 80048; 80076; 80307; 81001; 82140; 82553; 82805; 83605; 83735; 83880; 84484; 85025; 85610; 85730; 87040; 87086; 87641; 93005; 96365; J0690; J0696; 99285-25; G0479

== ENCOUNTER 2017-07-17 09:11 | Inpatient (IN) | payer MEDICARE, OTHER ==
[2017-07-17 10:16] LABS: ADD MAN DIFF? NO
[2017-07-17 10:20] LABS: BASO % 1 % (0-3); EOS # 0.3 x10^3/uL (0.0-0.7); EOS % 5 % (0-3); HEMATOCRIT 38.6 % (36.0-47.0); HEMOGLOBIN 13.1 g/dL (12.0-15.5); LYMPH # 0.8 x10^3/uL (1.0-4.8); LYMPH % 14 % (24-48); MEAN CORPUSCULAR HEMOGLOBIN 32 pg (25-35); MEAN CORPUSCULAR HGB CONC 34 g/dL (31-37); MEAN CORPUSCULAR VOLUME 95 fL (79-100); MONO # 0.7 x10^3/uL (0.0-1.1); MONO % 13 % (0-9); NEUT # 3.8 x10^3uL (1.8-7.7); NEUT % 67 % (31-73); PLATELET COUNT 142 x10^3/uL (140-400); RED BLOOD COUNT 4.06 x10^6/uL (3.50-5.40); RED CELL DISTRIBUTION WIDTH 12.7 % (11.5-14.5); WHITE BLOOD COUNT 5.7 x10^3/uL (4.0-11.0)
[2017-07-17 10:33] LABS: ANION GAP 2 (6-14); BLOOD UREA NITROGEN 18 mg/dL (7-20); BUN/CREATININE RATIO 30 (6-20); CALCIUM 9.3 mg/dL (8.5-10.1); CARBON DIOXIDE 33 mmol/L (21-32); CHLORIDE 106 mmol/L (98-107); CREATININE 0.6 mg/dL (0.6-1.0); GFR 100.6; GLUCOSE 111 mg/dL (70-99); POTASSIUM 3.9 mmol/L (3.5-5.1); SODIUM 141 mmol/L (136-145)
[2017-07-17 10:38] LABS: ALBUMIN 3.1 g/dL (3.4-5.0); ALBUMIN/GLOBULIN RATIO 0.8 (1.0-1.7); ALK PHOS 144 U/L (46-116); ALT (SGPT) 38 U/L (14-59); AST (SGOT) 33 U/L (15-37); TOTAL BILIRUBIN 0.3 mg/dL (0.2-1.0); TOTAL PROTEIN 7.1 g/dL (6.4-8.2)
[2017-07-17 10:38] LABS: TROPONINI < 0.017 ng/mL (0.000-0.055)
[2017-07-17 10:43] LABS: CKMB MASS 0.6 ng/mL (0.0-3.6); CREATINE KINASE 53 U/L (26-192)
[2017-07-17] MEDS ORDERED: ONDANSETRON PF 4 MG/2 ML VIAL. IV ×2 (11:15→12:15)
[2017-07-17] MEDS: levETIRAcetam 1,000 MG in IV DEXTROSE 5% 100 ML IV ×2 (11:30→21:04)
[2017-07-17 11:33] LABS: INR 1.1 (0.8-1.1); PARTIAL THROMBOPLASTIN TIME 21 SEC (24-38); PROTHROMBIN TIME PATIENT 13.5 SEC (11.7-14.0)
[2017-07-17] MEDS ORDERED: VANCOMYCIN 1 GM VIAL. (11:58)
[2017-07-17] MEDS ORDERED: ceFAZolin 1GM IVPB FOR OMNI 100 ML IV (11:59)
[2017-07-17] MEDS ORDERED: SURGICEL HEMOSTAT 4X8 EACH. (11:59)
[2017-07-17] MEDS ORDERED: DEXAMETHASONE SOD PHOS 20 MG/5 ML VIAL. (12:03)
[2017-07-17] MEDS ORDERED: DESFLURANE 61 TO 120 MINUTES IH (12:03)
[2017-07-17] MEDS: IV RINGERS,LACTATED 1000ML 1,000 ML IV (12:04)
[2017-07-17] MEDS ORDERED: LIDOCAINE 2% PF Vial for OR 5 ML VIAL. (12:06)
[2017-07-17] MEDS ORDERED: PROPOFOL 20 ML IV (12:06)
[2017-07-17] MEDS ORDERED: ROCURONIUM 50 MG/5 ML VIAL. (12:07)
[2017-07-17] MEDS ORDERED: LIDOCAINE 1% PF 2 ML VIAL. ID (12:15)
[2017-07-17] MEDS ORDERED: fentaNYL PF VIAL 100 MCG/2 ML VIAL IV (12:15)
[2017-07-17] MEDS ORDERED: PROCHLORPERAZINE 10 MG/2 ML VIAL. IV (12:15)
[2017-07-17] MEDS ORDERED: ONDANSETRON PF 4 MG/2 ML VIAL. (13:07)
[2017-07-17] MEDS ORDERED: NEOSTIGMINE 10 MG/10 ML VIAL. (13:07)
[2017-07-17] MEDS ORDERED: GLYCOPYRROLATE 1 MG/5 ML VIAL. (13:07)
[2017-07-17] MEDS: THROMBIN TOPICAL 20,000 UNIT SPRAY.SYRN KIT TP ×2 (13:17)
[2017-07-17] MEDS: GELATIN SPONGE SIZE 100. ×2 (13:17)
[2017-07-17] MEDS: BACITRACIN 50,000 UNIT in IV NORMAL SALINE 1000ML BAG 1,000 ML IRR (13:17)
[2017-07-17] MEDS: BUPIVACAINE-EPI 0.25%-1:200000 50 ML VIAL. (13:17)
[2017-07-17] MEDS ORDERED: diphenhydrAMINE HCL 25 MG CAPSULE PO (15:30)
[2017-07-17] MEDS ORDERED: MAGNESIUM HYDROXIDE 2,400 MG/30 ML ORAL.SUSP. PO (15:30)
[2017-07-17] MEDS ORDERED: 0.9 % SODIUM CHLORIDE 10 ML DISP.SYRIN. IV (15:30)
[2017-07-17] MEDS ORDERED: MAG HYDROX/ALUMINUM HYD/SIMETH 30 ML ORAL.SUSP PO (15:30)
[2017-07-17] MEDS ORDERED: DEXTROSE 50% 25 GM / 50ML DISP.SYRIN. IV (15:30)
[2017-07-17] MEDS ORDERED: CALCIUM CARBONATE 500 MG TAB.CHEW PO (15:30)
[2017-07-17] MEDS: fentaNYL PF VIAL 100 MCG/2 ML VIAL IV ×5 (15:55→23:56)
[2017-07-17] MEDS: POTASSIUM CL 20MEQ D5-0.45NACL 1,000 ML IV (16:18)
[2017-07-17] MEDS: DOCUSATE SODIUM 100 MG CAPSULE. PO (21:00)
[2017-07-17] MEDS: ceFAZolin SODIUM IV Push 1 GM VIAL. IVP (21:45)
[2017-07-17] MEDS ORDERED: ceFAZolin SODIUM 1 GM in IV DEXTROSE 5% 50 ML IV (22:00)
[2017-07-18] MEDS ORDERED: fentaNYL PF VIAL 100 MCG/2 ML VIAL IM (01:30)
[2017-07-18] MEDS: fentaNYL PF VIAL 100 MCG/2 ML VIAL IV ×8 (01:31→23:20)
[2017-07-18 04:44] LABS: ADD MAN DIFF? NO
[2017-07-18 04:45] LABS: BASO % 0 % (0-3); EOS % 0 % (0-3); HEMATOCRIT 29.9 % (36.0-47.0); HEMOGLOBIN 10.2 g/dL (12.0-15.5); LYMPH # 0.8 x10^3/uL (1.0-4.8); LYMPH % 11 % (24-48); MEAN CORPUSCULAR HEMOGLOBIN 32 pg (25-35); MEAN CORPUSCULAR HGB CONC 34 g/dL (31-37); MEAN CORPUSCULAR VOLUME 95 fL (79-100); MONO # 1.1 x10^3/uL (0.0-1.1); MONO % 15 % (0-9); NEUT # 5.5 x10^3uL (1.8-7.7); NEUT % 74 % (31-73); PLATELET COUNT 141 x10^3/uL (140-400); RED BLOOD COUNT 3.14 x10^6/uL (3.50-5.40); RED CELL DISTRIBUTION WIDTH 12.9 % (11.5-14.5); WHITE BLOOD COUNT 7.4 x10^3/uL (4.0-11.0)
[2017-07-18 04:55] LABS: INR 1.2 (0.8-1.1)
[2017-07-18] MEDS: POTASSIUM CL 20MEQ D5-0.45NACL 1,000 ML IV ×2 (05:05→23:22)
[2017-07-18 05:15] LABS: ALBUMIN 2.7 g/dL (3.4-5.0); ALBUMIN/GLOBULIN RATIO 0.8 (1.0-1.7); ALK PHOS 112 U/L (46-116); ALT (SGPT) 28 U/L (14-59); ANION GAP 3 (6-14); AST (SGOT) 25 U/L (15-37); BLOOD UREA NITROGEN 18 mg/dL (7-20); BUN/CREATININE RATIO 30 (6-20); CALCIUM 8.9 mg/dL (8.5-10.1); CARBON DIOXIDE 32 mmol/L (21-32); CHLORIDE 105 mmol/L (98-107); CREATININE 0.6 mg/dL (0.6-1.0); GFR 100.6; GLUCOSE 127 mg/dL (70-99); POTASSIUM 4.1 mmol/L (3.5-5.1); SODIUM 140 mmol/L (136-145); TOTAL BILIRUBIN 0.2 mg/dL (0.2-1.0); TOTAL PROTEIN 6.3 g/dL (6.4-8.2)
[2017-07-18] MEDS: ceFAZolin SODIUM IV Push 1 GM VIAL. IVP ×2 (05:47→14:42)
[2017-07-18] MEDS: QUEtiapine 25 MG TABLET. PO ×3 (08:44→20:40)
[2017-07-18] MEDS: DOCUSATE SODIUM 100 MG CAPSULE. PO ×2 (09:00→20:40)
[2017-07-18] MEDS: LEVOTHYROXINE SODIUM 37.5 MCG in IV NORMAL SALINE 50ML 5 ML IVP (09:25)
[2017-07-18] MEDS: LACOSAMIDE 200 MG TABLET PO ×2 (11:38→20:40)
[2017-07-18] MEDS: levETIRAcetam 250 MG TABLET PO ×2 (11:38→20:40)
[2017-07-18] MEDS: FELBAMATE 400 MG TABLET PO ×3 (11:38→20:40)
[2017-07-18] MEDS ORDERED: HYDROcodone/APAP 7.5/325MG 1 TAB TABLET PO (12:45)
[2017-07-18] MEDS: PHENobarbital 32.4 MG TABLET. PO (20:39)
[2017-07-19] MEDS: fentaNYL PF VIAL 100 MCG/2 ML VIAL IV ×8 (03:34→18:22)
[2017-07-19 04:30] LABS: ADD MAN DIFF? NO
[2017-07-19 04:33] LABS: BASO % 0 % (0-3); EOS % 0 % (0-3); HEMATOCRIT 27.1 % (36.0-47.0); HEMOGLOBIN 9.5 g/dL (12.0-15.5); LYMPH % 14 % (24-48); MEAN CORPUSCULAR HEMOGLOBIN 33 pg (25-35); MEAN CORPUSCULAR HGB CONC 35 g/dL (31-37); MEAN CORPUSCULAR VOLUME 94 fL (79-100); MONO # 1.1 x10^3/uL (0.0-1.1); MONO % 15 % (0-9); NEUT # 5.4 x10^3uL (1.8-7.7); NEUT % 71 % (31-73); PLATELET COUNT 137 x10^3/uL (140-400); RED CELL DISTRIBUTION WIDTH 12.8 % (11.5-14.5); WHITE BLOOD COUNT 7.6 x10^3/uL (4.0-11.0)
[2017-07-19 06:13] LABS: ANION GAP 7 (6-14); BLOOD UREA NITROGEN 11 mg/dL (7-20); CALCIUM 9.2 mg/dL (8.5-10.1); CARBON DIOXIDE 29 mmol/L (21-32); CHLORIDE 106 mmol/L (98-107); CREATININE 0.6 mg/dL (0.6-1.0); GFR 100.6; GLUCOSE 124 mg/dL (70-99); MAGNESIUM 1.7 mg/dL (1.8-2.4); POTASSIUM 3.7 mmol/L (3.5-5.1); SODIUM 142 mmol/L (136-145)
[2017-07-19] MEDS: POTASSIUM CL 20MEQ D5-0.45NACL 1,000 ML IV (07:17)
[2017-07-19] MEDS ORDERED: POLYETHYLENE GLYCOL 3350 17 GM PACKET. PO (08:30)
[2017-07-19] MEDS ORDERED: BISACODYL 10 MG SUPP.RECT. RC (08:30)
[2017-07-19] MEDS: DOCUSATE SODIUM 100 MG CAPSULE. PO ×2 (08:34→21:00)
[2017-07-19] MEDS: FELBAMATE 400 MG TABLET PO ×3 (08:34→21:00)
[2017-07-19] MEDS: levETIRAcetam 250 MG TABLET PO (08:34)
[2017-07-19] MEDS: LACOSAMIDE 200 MG TABLET PO (08:35)
[2017-07-19] MEDS: QUEtiapine 25 MG TABLET. PO ×3 (08:35→21:00)
[2017-07-19] MEDS: MAGNESIUM OXIDE 400 MG TABLET PO ×3 (09:15→21:00)
[2017-07-19] MEDS: CHOLECALCIFEROL (VITAMIN D3) 1,000 UNIT TABLET PO (09:15)
[2017-07-19] MEDS: LEVOTHYROXINE 75 MCG TABLET PO (09:15)
[2017-07-19] MEDS: FERROUS SULFATE 325 MG TABLET. PO ×2 (09:15→17:00)
[2017-07-19] MEDS: MULTIVITAMIN with MINERAL TABLET. PO (09:15)
[2017-07-19] MEDS: CALCIUM CARBONATE 500 MG TABLET PO ×2 (09:15→16:30)
[2017-07-19] MEDS: MAGNESIUM SULFATE 2GM 50 ML IV (09:16)
[2017-07-19] MEDS: POTASSIUM CL 30MEQ D5-0.45NACL 1,000 ML IV (09:16)
[2017-07-19] MEDS: ONDANSETRON PF 4 MG/2 ML VIAL. IV (16:17)
[2017-07-19] MEDS: ATORVASTATIN CALCIUM 10 MG TABLET. PO (21:00)
[2017-07-19] MEDS: VENLAFAXINE XR 37.5 MG CAP.ER.24H. PO (21:00)
[2017-07-19] MEDS: PHENobarbital 32.4 MG TABLET. PO (21:00)
[2017-07-19] MEDS: LORazepam INTENSOL 2 MG/ML ORAL.CONC SL (21:15)
[2017-07-19] MEDS: NORMAL SALINE IV (22:01)
[2017-07-19] MEDS: LACOSAMIDE IV (22:01)
[2017-07-19 22:13] LABS: MRSA BY PCR Negative (Negative)
[2017-07-20] MEDS: fentaNYL PF VIAL 100 MCG/2 ML VIAL IV ×2 (01:17→03:23)
[2017-07-20] MEDS: LEVOTHYROXINE 75 MCG TABLET PO (06:00)
[2017-07-20] MEDS: CALCIUM CARBONATE 500 MG TABLET PO ×2 (06:09→16:21)
[2017-07-20 06:14] LABS: ADD MAN DIFF? NO
[2017-07-20 06:18] LABS: BASO # 0.1 x10^3/uL (0.0-0.2); BASO % 1 % (0-3); EOS % 0 % (0-3); HEMATOCRIT 21.7 % (36.0-47.0); LYMPH # 1.4 x10^3/uL (1.0-4.8); LYMPH % 15 % (24-48); MEAN CORPUSCULAR HEMOGLOBIN 32 pg (25-35); MEAN CORPUSCULAR HGB CONC 35 g/dL (31-37); MEAN CORPUSCULAR VOLUME 93 fL (79-100); MONO # 1.5 x10^3/uL (0.0-1.1); MONO % 16 % (0-9); NEUT # 6.4 x10^3uL (1.8-7.7); NEUT % 69 % (31-73); PLATELET COUNT 151 x10^3/uL (140-400); RED BLOOD COUNT 2.32 x10^6/uL (3.50-5.40); RED CELL DISTRIBUTION WIDTH 12.2 % (11.5-14.5); WHITE BLOOD COUNT 9.3 x10^3/uL (4.0-11.0)
[2017-07-20 06:41] LABS: ANION GAP 9 (6-14); BLOOD UREA NITROGEN 16 mg/dL (7-20); CARBON DIOXIDE 30 mmol/L (21-32); CHLORIDE 104 mmol/L (98-107); CREATININE 0.6 mg/dL (0.6-1.0); GFR 100.6; GLUCOSE 91 mg/dL (70-99); POTASSIUM 3.4 mmol/L (3.5-5.1); SODIUM 143 mmol/L (136-145)
[2017-07-20] MEDS: FERROUS SULFATE 325 MG TABLET. PO ×2 (07:36→16:21)
[2017-07-20] MEDS: MAGNESIUM OXIDE 400 MG TABLET PO ×3 (07:37→21:00)
[2017-07-20] MEDS: DOCUSATE SODIUM 100 MG CAPSULE. PO ×2 (07:37→21:00)
[2017-07-20] MEDS: FELBAMATE 400 MG TABLET PO ×3 (07:37→21:00)
[2017-07-20] MEDS: QUEtiapine 25 MG TABLET. PO ×3 (07:38→21:00)
[2017-07-20] MEDS: CHOLECALCIFEROL (VITAMIN D3) 1,000 UNIT TABLET PO (07:38)
[2017-07-20] MEDS: MULTIVITAMIN with MINERAL TABLET. PO (07:38)
[2017-07-20] MEDS: LACOSAMIDE IV ×2 (09:29→21:14)
[2017-07-20] MEDS: NORMAL SALINE IV ×2 (09:29→21:14)
[2017-07-20] MEDS: OLANZapine IM 10 MG VIAL. IM ×2 (09:31→21:51)
[2017-07-20] MEDS: POTASSIUM CHLORIDE 40 MEQ in IV NORMAL SALINE 500ML BAG 500 ML IV (12:20)
[2017-07-20] MEDS: AMINO AC 3%/ELECTROLYTE/GLYCER 1,000 ML IV (12:37)
[2017-07-20 12:59] LABS: HEMATOCRIT 27.3 % (36.0-47.0); HEMOGLOBIN 9.4 g/dL (12.0-15.5); MEAN CORPUSCULAR HEMOGLOBIN 32 pg (25-35); MEAN CORPUSCULAR HGB CONC 34 g/dL (31-37); MEAN CORPUSCULAR VOLUME 93 fL (79-100); PLATELET COUNT 128 x10^3/uL (140-400); RED BLOOD COUNT 2.93 x10^6/uL (3.50-5.40); RED CELL DISTRIBUTION WIDTH 12.4 % (11.5-14.5)
[2017-07-20 13:02] LABS: WHITE BLOOD COUNT 6.4 x10^3/uL (4.0-11.0)
[2017-07-20 13:03] LABS: HEMOGLOBIN 7.5 g/dL (12.0-15.5)
[2017-07-20] MEDS: VENLAFAXINE XR 37.5 MG CAP.ER.24H. PO (21:00)
[2017-07-20] MEDS: PHENobarbital 32.4 MG TABLET. PO (21:00)
[2017-07-20] MEDS: ATORVASTATIN CALCIUM 10 MG TABLET. PO (21:00)
[2017-07-20] MEDS: ACETAMINOPHEN 325 MG SUPP.RECT. PR (21:52)
[2017-07-21] MEDS: PIPERACILLIN/TAZOBACTAM 3.375 GM in IV NORMAL SALINE 50ML 50 ML IV ×5 (00:07→23:44)
[2017-07-21] MEDS: AMINO AC 3%/ELECTROLYTE/GLYCER 1,000 ML IV ×2 (01:10→12:47)
[2017-07-21 06:14] LABS: ADD MAN DIFF? NO
[2017-07-21 06:35] LABS: BASO # 0.1 x10^3/uL (0.0-0.2); BASO % 1 % (0-3); EOS # 0.4 x10^3/uL (0.0-0.7); EOS % 5 % (0-3); HEMATOCRIT 27.3 % (36.0-47.0); HEMOGLOBIN 9.4 g/dL (12.0-15.5); LYMPH # 1.1 x10^3/uL (1.0-4.8); LYMPH % 13 % (24-48); MEAN CORPUSCULAR HEMOGLOBIN 32 pg (25-35); MEAN CORPUSCULAR HGB CONC 35 g/dL (31-37); MEAN CORPUSCULAR VOLUME 93 fL (79-100); MONO % 12 % (0-9); NEUT # 5.7 x10^3uL (1.8-7.7); NEUT % 69 % (31-73); PLATELET COUNT 160 x10^3/uL (140-400); RED BLOOD COUNT 2.93 x10^6/uL (3.50-5.40); RED CELL DISTRIBUTION WIDTH 12.6 % (11.5-14.5); WHITE BLOOD COUNT 8.3 x10^3/uL (4.0-11.0)
[2017-07-21 06:46] LABS: ANION GAP 10 (6-14); BLOOD UREA NITROGEN 15 mg/dL (7-20); CALCIUM 8.8 mg/dL (8.5-10.1); CARBON DIOXIDE 29 mmol/L (21-32); CHLORIDE 104 mmol/L (98-107); CREATININE 0.6 mg/dL (0.6-1.0); GFR 100.6; GLUCOSE 99 mg/dL (70-99); MAGNESIUM 1.8 mg/dL (1.8-2.4); POTASSIUM 3.7 mmol/L (3.5-5.1); SODIUM 143 mmol/L (136-145)
[2017-07-21] MEDS: CALCIUM CARBONATE 500 MG TABLET PO ×2 (07:30→12:33)
[2017-07-21] MEDS: FERROUS SULFATE 325 MG TABLET. PO ×2 (08:00→12:33)
[2017-07-21] MEDS: MAGNESIUM OXIDE 400 MG TABLET PO ×3 (09:00→20:34)
[2017-07-21] MEDS: FELBAMATE 400 MG TABLET PO ×3 (09:00→20:34)
[2017-07-21] MEDS: DOCUSATE SODIUM 100 MG CAPSULE. PO ×2 (09:00→20:33)
[2017-07-21] MEDS: MULTIVITAMIN with MINERAL TABLET. PO (09:00)
[2017-07-21] MEDS: CHOLECALCIFEROL (VITAMIN D3) 1,000 UNIT TABLET PO (09:00)
[2017-07-21] MEDS: QUEtiapine 25 MG TABLET. PO ×3 (09:00→20:35)
[2017-07-21] MEDS: OLANZapine IM 10 MG VIAL. IM (09:04)
[2017-07-21] MEDS: LEVOTHYROXINE SODIUM 37.5 MCG in IV NORMAL SALINE 50ML 5 ML IVP (09:13)
[2017-07-21] MEDS: LACOSAMIDE IV ×2 (09:21→20:33)
[2017-07-21] MEDS: NORMAL SALINE IV ×2 (09:21→20:33)
[2017-07-21 11:41] LABS: PROCALCITONIN < 0.10 ng/mL (0.00-0.10)
[2017-07-21] MEDS: fentaNYL PF VIAL 100 MCG/2 ML VIAL IV ×4 (15:55→23:29)
[2017-07-21 16:42] LABS: INFLUENZA A PATIENT NEGATIVE (NEGATIVE); INFLUENZA B PATIENT NEGATIVE (NEGATIVE); OBC FLU VALID
[2017-07-21] MEDS: ATORVASTATIN CALCIUM 10 MG TABLET. PO (20:34)
[2017-07-21] MEDS: PHENobarbital 32.4 MG TABLET. PO (20:34)
[2017-07-21] MEDS: VENLAFAXINE XR 37.5 MG CAP.ER.24H. PO (20:34)
[2017-07-21] MEDS: ACETAMINOPHEN 325 MG SUPP.RECT. PR (23:45)
[2017-07-22 05:09] LABS: ADD MAN DIFF? NO
[2017-07-22] MEDS: fentaNYL PF VIAL 100 MCG/2 ML VIAL IV ×6 (05:21→23:31)
[2017-07-22] MEDS: PIPERACILLIN/TAZOBACTAM 3.375 GM in IV NORMAL SALINE 50ML 50 ML IV ×4 (05:40→23:30)
[2017-07-22 05:48] LABS: BASO % 1 % (0-3); EOS # 0.2 x10^3/uL (0.0-0.7); EOS % 4 % (0-3); HEMATOCRIT 26.6 % (36.0-47.0); HEMOGLOBIN 9.2 g/dL (12.0-15.5); LYMPH # 1.6 x10^3/uL (1.0-4.8); LYMPH % 27 % (24-48); MEAN CORPUSCULAR HEMOGLOBIN 32 pg (25-35); MEAN CORPUSCULAR HGB CONC 35 g/dL (31-37); MEAN CORPUSCULAR VOLUME 92 fL (79-100); MONO % 17 % (0-9); NEUT % 52 % (31-73); PLATELET COUNT 180 x10^3/uL (140-400); RED BLOOD COUNT 2.87 x10^6/uL (3.50-5.40); RED CELL DISTRIBUTION WIDTH 12.5 % (11.5-14.5); WHITE BLOOD COUNT 5.8 x10^3/uL (4.0-11.0)
[2017-07-22 05:58] LABS: ANION GAP 7 (6-14); BLOOD UREA NITROGEN 13 mg/dL (7-20); CARBON DIOXIDE 30 mmol/L (21-32); CHLORIDE 102 mmol/L (98-107); CREATININE 0.7 mg/dL (0.6-1.0); GFR 84.2; GLUCOSE 102 mg/dL (70-99); POTASSIUM 3.2 mmol/L (3.5-5.1); SODIUM 139 mmol/L (136-145)
[2017-07-22] MEDS: CALCIUM CARBONATE 500 MG TABLET PO ×2 (07:30→13:19)
[2017-07-22] MEDS: AMINO AC 3%/ELECTROLYTE/GLYCER 1,000 ML IV ×2 (07:44→12:30)
[2017-07-22] MEDS: FERROUS SULFATE 325 MG TABLET. PO ×2 (08:00→13:19)
[2017-07-22] MEDS: QUEtiapine 25 MG TABLET. PO ×3 (08:08→21:00)
[2017-07-22] MEDS: FELBAMATE 400 MG TABLET PO ×3 (08:08→21:00)
[2017-07-22] MEDS: CHOLECALCIFEROL (VITAMIN D3) 1,000 UNIT TABLET PO (08:08)
[2017-07-22] MEDS: DOCUSATE SODIUM 100 MG CAPSULE. PO ×2 (08:08→21:00)
[2017-07-22] MEDS: MAGNESIUM OXIDE 400 MG TABLET PO ×3 (08:08→21:00)
[2017-07-22] MEDS: MULTIVITAMIN with MINERAL TABLET. PO (08:08)
[2017-07-22] MEDS: LEVOTHYROXINE SODIUM 37.5 MCG in IV NORMAL SALINE 50ML 5 ML IVP (09:17)
[2017-07-22] MEDS ORDERED: POTASSIUM CHLORIDE 20MEQ 50 ML IV (09:45)
[2017-07-22] MEDS: NORMAL SALINE IV ×2 (09:58→21:10)
[2017-07-22] MEDS: LACOSAMIDE IV ×2 (09:58→21:10)
[2017-07-22] MEDS: POTASSIUM CHLORIDE 10 MEQ in IV NORMAL SALINE 100ML 100 ML IV ×2 (11:47→12:22)
[2017-07-22] MEDS: ATORVASTATIN CALCIUM 10 MG TABLET. PO (21:00)
[2017-07-22] MEDS: VENLAFAXINE XR 37.5 MG CAP.ER.24H. PO (21:00)
[2017-07-22] MEDS: PHENobarbital 32.4 MG TABLET. PO (21:00)
[2017-07-23] MEDS: OLANZapine IM 10 MG VIAL. IM ×2 (02:50→23:33)
[2017-07-23] MEDS: fentaNYL PF VIAL 100 MCG/2 ML VIAL IV ×4 (03:32→22:04)
[2017-07-23 05:06] LABS: ADD MAN DIFF? NO
[2017-07-23 05:28] LABS: BASO # 0.1 x10^3/uL (0.0-0.2); BASO % 1 % (0-3); EOS # 0.1 x10^3/uL (0.0-0.7); EOS % 2 % (0-3); HEMATOCRIT 28.1 % (36.0-47.0); HEMOGLOBIN 9.6 g/dL (12.0-15.5); LYMPH # 1.2 x10^3/uL (1.0-4.8); LYMPH % 25 % (24-48); MEAN CORPUSCULAR HEMOGLOBIN 32 pg (25-35); MEAN CORPUSCULAR HGB CONC 34 g/dL (31-37); MEAN CORPUSCULAR VOLUME 93 fL (79-100); MONO # 0.9 x10^3/uL (0.0-1.1); MONO % 20 % (0-9); NEUT # 2.5 x10^3uL (1.8-7.7); NEUT % 52 % (31-73); PLATELET COUNT 188 x10^3/uL (140-400); RED BLOOD COUNT 3.03 x10^6/uL (3.50-5.40); RED CELL DISTRIBUTION WIDTH 12.8 % (11.5-14.5); WHITE BLOOD COUNT 4.8 x10^3/uL (4.0-11.0)
[2017-07-23] MEDS: PIPERACILLIN/TAZOBACTAM 3.375 GM in IV NORMAL SALINE 50ML 50 ML IV ×3 (05:30→17:16)
[2017-07-23 05:43] LABS: ANION GAP 11 (6-14); BLOOD UREA NITROGEN 18 mg/dL (7-20); CARBON DIOXIDE 25 mmol/L (21-32); CHLORIDE 100 mmol/L (98-107); CREATININE 0.6 mg/dL (0.6-1.0); GFR 100.6; GLUCOSE 91 mg/dL (70-99); POTASSIUM 3.2 mmol/L (3.5-5.1); SODIUM 136 mmol/L (136-145)
[2017-07-23] MEDS: CALCIUM CARBONATE 500 MG TABLET PO ×2 (07:30→16:26)
[2017-07-23] MEDS: FERROUS SULFATE 325 MG TABLET. PO ×2 (07:47→16:26)
[2017-07-23] MEDS: DOCUSATE SODIUM 100 MG CAPSULE. PO ×2 (07:48→21:00)
[2017-07-23] MEDS: MAGNESIUM OXIDE 400 MG TABLET PO ×3 (07:52→21:00)
[2017-07-23] MEDS: FELBAMATE 400 MG TABLET PO ×3 (07:52→21:00)
[2017-07-23] MEDS: QUEtiapine 25 MG TABLET. PO ×3 (07:52→21:00)
[2017-07-23] MEDS: MULTIVITAMIN with MINERAL TABLET. PO (07:53)
[2017-07-23] MEDS: CHOLECALCIFEROL (VITAMIN D3) 1,000 UNIT TABLET PO (07:53)
[2017-07-23] MEDS: LACOSAMIDE IV ×2 (08:55→22:47)
[2017-07-23] MEDS: NORMAL SALINE IV ×3 (08:55→22:47)
[2017-07-23] MEDS: LEVOTHYROXINE SODIUM 37.5 MCG in IV NORMAL SALINE 50ML 5 ML IVP (08:56)
[2017-07-23] MEDS: AMINO AC 3%/ELECTROLYTE/GLYCER 1,000 ML IV ×2 (13:09→13:30)
[2017-07-23] MEDS: POTASSIUM CHLORIDE 20MEQ 50 ML IV (13:45)
[2017-07-23] MEDS: POTASSIUM CHLORIDE IV (15:13)
[2017-07-23] MEDS: ATORVASTATIN CALCIUM 10 MG TABLET. PO (21:00)
[2017-07-23] MEDS: PHENobarbital 32.4 MG TABLET. PO (21:00)
[2017-07-23] MEDS: VENLAFAXINE XR 37.5 MG CAP.ER.24H. PO (21:00)
[2017-07-24] MEDS: AMINO AC 3%/ELECTROLYTE/GLYCER 1,000 ML IV ×2 (03:00→12:19)
[2017-07-24] MEDS: PIPERACILLIN/TAZOBACTAM 3.375 GM in IV NORMAL SALINE 50ML 50 ML IV ×2 (06:26)
[2017-07-24] MEDS: CALCIUM CARBONATE 500 MG TABLET PO ×2 (07:30→16:30)
[2017-07-24 07:44] LABS: ANION GAP 12 (6-14); BLOOD UREA NITROGEN 12 mg/dL (7-20); CALCIUM 8.9 mg/dL (8.5-10.1); CARBON DIOXIDE 23 mmol/L (21-32); CHLORIDE 101 mmol/L (98-107); CREATININE 0.6 mg/dL (0.6-1.0); GFR 100.6; GLUCOSE 94 mg/dL (70-99); POTASSIUM 3.5 mmol/L (3.5-5.1); SODIUM 136 mmol/L (136-145)
[2017-07-24] MEDS: FERROUS SULFATE 325 MG TABLET. PO ×2 (08:00→17:00)
[2017-07-24] MEDS ORDERED: PIPERACILLIN/TAZOBACTAM 3.375 GM in IV NORMAL SALINE 100ML 100 ML IV (08:08)
[2017-07-24] MEDS: MAGNESIUM OXIDE 400 MG TABLET PO ×3 (09:00→21:00)
[2017-07-24] MEDS: DOCUSATE SODIUM 100 MG CAPSULE. PO ×2 (09:00→21:00)
[2017-07-24] MEDS: QUEtiapine 25 MG TABLET. PO ×3 (09:00→21:00)
[2017-07-24] MEDS: CHOLECALCIFEROL (VITAMIN D3) 1,000 UNIT TABLET PO (09:00)
[2017-07-24] MEDS: MULTIVITAMIN with MINERAL TABLET. PO (09:00)
[2017-07-24] MEDS: FELBAMATE 400 MG TABLET PO ×3 (09:00→21:00)
[2017-07-24] MEDS: NORMAL SALINE IV ×2 (10:15→21:49)
[2017-07-24] MEDS: LACOSAMIDE IV ×2 (10:15→21:49)
[2017-07-24] MEDS: LEVOTHYROXINE SODIUM 37.5 MCG in IV NORMAL SALINE 50ML 5 ML IVP (10:16)
[2017-07-24 12:06] LABS: POC GLUCOSE 115 mg/dL (70-99)
[2017-07-24] MEDS: PIPERACILLIN/TAZOBACTAM 3.375 GM in IV NORMAL SALINE 100ML 100 ML IV (18:13)
[2017-07-24] MEDS: ATORVASTATIN CALCIUM 10 MG TABLET. PO (21:00)
[2017-07-24] MEDS: PHENobarbital 32.4 MG TABLET. PO (21:00)
[2017-07-24] MEDS: VENLAFAXINE XR 37.5 MG CAP.ER.24H. PO (21:00)
[2017-07-24] MEDS: diphenhydrAMINE 50 MG/ML VIAL IV (23:31)
[2017-07-25] MEDS: PIPERACILLIN/TAZOBACTAM 3.375 GM in IV NORMAL SALINE 100ML 100 ML IV ×5 (01:00→23:48)
[2017-07-25] MEDS: fentaNYL PF VIAL 100 MCG/2 ML VIAL IV (04:14)
[2017-07-25] MEDS: AMINO AC 3%/ELECTROLYTE/GLYCER 1,000 ML IV ×3 (07:21→21:02)
[2017-07-25] MEDS: CALCIUM CARBONATE 500 MG TABLET PO ×2 (07:30→16:30)
[2017-07-25] MEDS: FERROUS SULFATE 325 MG TABLET. PO ×2 (08:00→17:00)
[2017-07-25] MEDS: FELBAMATE 400 MG TABLET PO ×3 (08:26→22:39)
[2017-07-25] MEDS: MULTIVITAMIN with MINERAL TABLET. PO (08:26)
[2017-07-25] MEDS: MAGNESIUM OXIDE 400 MG TABLET PO ×3 (08:26→22:38)
[2017-07-25] MEDS: CHOLECALCIFEROL (VITAMIN D3) 1,000 UNIT TABLET PO (08:26)
[2017-07-25] MEDS: QUEtiapine 25 MG TABLET. PO ×3 (08:26→21:02)
[2017-07-25] MEDS: DOCUSATE SODIUM 100 MG CAPSULE. PO ×2 (08:26→22:39)
[2017-07-25] MEDS: LEVOTHYROXINE SODIUM 37.5 MCG in IV NORMAL SALINE 50ML 5 ML IVP (09:16)
[2017-07-25] MEDS: NORMAL SALINE IV ×2 (09:16→20:58)
[2017-07-25] MEDS: LACOSAMIDE IV ×2 (09:16→20:58)
[2017-07-25] MEDS: PHENobarbital 32.4 MG TABLET. PO (21:03)
[2017-07-25] MEDS: ATORVASTATIN CALCIUM 10 MG TABLET. PO (22:38)
[2017-07-25] MEDS: VENLAFAXINE XR 37.5 MG CAP.ER.24H. PO (22:38)
[2017-07-26] MEDS: PIPERACILLIN/TAZOBACTAM 3.375 GM in IV NORMAL SALINE 100ML 100 ML IV (05:37)
[2017-07-26 07:57] LABS: ADD MAN DIFF? NO
[2017-07-26 08:01] LABS: BASO # 0.1 x10^3/uL (0.0-0.2); BASO % 1 % (0-3); EOS # 0.3 x10^3/uL (0.0-0.7); EOS % 5 % (0-3); HEMATOCRIT 28.2 % (36.0-47.0); HEMOGLOBIN 9.6 g/dL (12.0-15.5); LYMPH # 1.1 x10^3/uL (1.0-4.8); LYMPH % 19 % (24-48); MEAN CORPUSCULAR HEMOGLOBIN 31 pg (25-35); MEAN CORPUSCULAR HGB CONC 34 g/dL (31-37); MEAN CORPUSCULAR VOLUME 92 fL (79-100); MONO # 0.7 x10^3/uL (0.0-1.1); MONO % 12 % (0-9); NEUT # 3.9 x10^3uL (1.8-7.7); NEUT % 63 % (31-73); PLATELET COUNT 302 x10^3/uL (140-400); RED BLOOD COUNT 3.07 x10^6/uL (3.50-5.40); RED CELL DISTRIBUTION WIDTH 12.9 % (11.5-14.5); WHITE BLOOD COUNT 6.1 x10^3/uL (4.0-11.0)
[2017-07-26 08:26] LABS: ANION GAP 9 (6-14); BLOOD UREA NITROGEN 16 mg/dL (7-20); CALCIUM 8.7 mg/dL (8.5-10.1); CARBON DIOXIDE 27 mmol/L (21-32); CHLORIDE 102 mmol/L (98-107); CREATININE 0.7 mg/dL (0.6-1.0); GFR 84.2; GLUCOSE 112 mg/dL (70-99); POTASSIUM 3.9 mmol/L (3.5-5.1); SODIUM 138 mmol/L (136-145)
[2017-07-26] MEDS: LEVOTHYROXINE SODIUM 37.5 MCG in IV NORMAL SALINE 50ML 5 ML IVP (09:00)
[2017-07-26] MEDS: CALCIUM CARBONATE 500 MG TABLET PO ×2 (09:05→17:57)
[2017-07-26] MEDS: FELBAMATE 400 MG TABLET PO ×3 (09:05→21:00)
[2017-07-26] MEDS: QUEtiapine 25 MG TABLET. PO ×3 (09:05→21:00)
[2017-07-26] MEDS: AMOXICILLIN/K CLAV 875/125MG TABLET. PO ×2 (09:05→21:00)
[2017-07-26] MEDS: CHOLECALCIFEROL (VITAMIN D3) 1,000 UNIT TABLET PO (09:05)
[2017-07-26] MEDS: MAGNESIUM OXIDE 400 MG TABLET PO ×3 (09:05→21:01)
[2017-07-26] MEDS: FERROUS SULFATE 325 MG TABLET. PO ×2 (09:05→17:57)
[2017-07-26] MEDS: MULTIVITAMIN with MINERAL TABLET. PO (09:05)
[2017-07-26] MEDS: DOCUSATE SODIUM 100 MG CAPSULE. PO ×2 (09:05→21:00)
[2017-07-26] MEDS: SENNOSIDES/DOCUSATE 8.6/50MG TABLET. PO (09:15)
[2017-07-26] MEDS: MAGNESIUM HYDROXIDE 2,400 MG/30 ML ORAL.SUSP. PO (09:15)
[2017-07-26] MEDS: LACOSAMIDE IV (09:45)
[2017-07-26] MEDS: NORMAL SALINE IV (09:45)
[2017-07-26] MEDS: oxyCODONE IR 5 MG TABLET PO ×2 (11:22→18:24)
[2017-07-26] MEDS: AMINO AC 3%/ELECTROLYTE/GLYCER 1,000 ML IV (17:57)
[2017-07-26] MEDS: PHENobarbital 32.4 MG TABLET. PO (21:00)
[2017-07-26] MEDS: levETIRAcetam 250 MG TABLET PO (21:00)
[2017-07-26] MEDS: LACOSAMIDE 200 MG TABLET PO (21:01)
[2017-07-26] MEDS: ATORVASTATIN CALCIUM 10 MG TABLET. PO (21:01)
[2017-07-26] MEDS: VENLAFAXINE XR 37.5 MG CAP.ER.24H. PO (21:03)
[2017-07-27 04:10] LABS: ADD MAN DIFF? NO
[2017-07-27 04:16] LABS: BASO # 0.1 x10^3/uL (0.0-0.2); BASO % 1 % (0-3); EOS # 0.4 x10^3/uL (0.0-0.7); EOS % 6 % (0-3); HEMOGLOBIN 9.3 g/dL (12.0-15.5); LYMPH # 1.6 x10^3/uL (1.0-4.8); LYMPH % 20 % (24-48); MEAN CORPUSCULAR HEMOGLOBIN 32 pg (25-35); MEAN CORPUSCULAR HGB CONC 34 g/dL (31-37); MEAN CORPUSCULAR VOLUME 93 fL (79-100); MONO # 0.9 x10^3/uL (0.0-1.1); MONO % 11 % (0-9); NEUT % 63 % (31-73); PLATELET COUNT 319 x10^3/uL (140-400); RED BLOOD COUNT 2.89 x10^6/uL (3.50-5.40); RED CELL DISTRIBUTION WIDTH 13.2 % (11.5-14.5)
[2017-07-27] MEDS: LEVOTHYROXINE 75 MCG TABLET PO (06:02)
[2017-07-27] MEDS: AMINO AC 3%/ELECTROLYTE/GLYCER 1,000 ML IV ×2 (06:02→17:27)
[2017-07-27] MEDS: CALCIUM CARBONATE 500 MG TABLET PO ×2 (06:02→17:38)
[2017-07-27] MEDS: oxyCODONE IR 5 MG TABLET PO (06:02)
[2017-07-27 06:17] LABS: ALBUMIN 2.3 g/dL (3.4-5.0); ALBUMIN/GLOBULIN RATIO 0.6 (1.0-1.7); ALK PHOS 117 U/L (46-116); ALT (SGPT) 54 U/L (14-59); ANION GAP 7 (6-14); AST (SGOT) 35 U/L (15-37); BLOOD UREA NITROGEN 19 mg/dL (7-20); BUN/CREATININE RATIO 32 (6-20); CALCIUM 8.5 mg/dL (8.5-10.1); CARBON DIOXIDE 27 mmol/L (21-32); CHLORIDE 103 mmol/L (98-107); CREATININE 0.6 mg/dL (0.6-1.0); GFR 100.6; GLUCOSE 101 mg/dL (70-99); MAGNESIUM 2.2 mg/dL (1.8-2.4); POTASSIUM 4.1 mmol/L (3.5-5.1); SODIUM 137 mmol/L (136-145); TOTAL BILIRUBIN 0.3 mg/dL (0.2-1.0); TOTAL PROTEIN 6.4 g/dL (6.4-8.2)
[2017-07-27] MEDS: DOCUSATE SODIUM 100 MG CAPSULE. PO ×2 (09:00→20:12)
[2017-07-27] MEDS: FELBAMATE 400 MG TABLET PO ×3 (12:11→20:11)
[2017-07-27] MEDS: FERROUS SULFATE 325 MG TABLET. PO ×2 (12:11→17:39)
[2017-07-27] MEDS: MULTIVITAMIN with MINERAL TABLET. PO (12:11)
[2017-07-27] MEDS: MAGNESIUM OXIDE 400 MG TABLET PO ×3 (12:12→20:25)
[2017-07-27] MEDS: CHOLECALCIFEROL (VITAMIN D3) 1,000 UNIT TABLET PO (12:12)
[2017-07-27] MEDS: LACOSAMIDE 200 MG TABLET PO ×2 (12:12→20:13)
[2017-07-27] MEDS: QUEtiapine 25 MG TABLET. PO ×3 (12:13→20:12)
[2017-07-27] MEDS: levETIRAcetam 250 MG TABLET PO ×2 (12:13→20:11)
[2017-07-27] MEDS: AMOXICILLIN/K CLAV 875/125MG TABLET. PO ×2 (12:15→20:12)
[2017-07-27] MEDS: ACETAMINOPHEN 325 MG TABLET. PO ×2 (13:06→20:25)
[2017-07-27] MEDS: LACTOBACILLUS RHAMNOSUS GG 1 CAPSULE. PO (20:11)
[2017-07-27] MEDS: ATORVASTATIN CALCIUM 10 MG TABLET. PO (20:12)
[2017-07-27] MEDS: VENLAFAXINE XR 37.5 MG CAP.ER.24H. PO (20:12)
[2017-07-27] MEDS: PHENobarbital 32.4 MG TABLET. PO (20:13)
[2017-07-27] MEDS: MAGNESIUM HYDROXIDE 2,400 MG/30 ML ORAL.SUSP. PO (20:13)
[2017-07-28] MEDS: ACETAMINOPHEN 325 MG TABLET. PO ×3 (03:20→21:57)
[2017-07-28] MEDS: AMINO AC 3%/ELECTROLYTE/GLYCER 1,000 ML IV ×2 (05:58→21:00)
[2017-07-28] MEDS: DOCUSATE SODIUM 100 MG CAPSULE. PO ×2 (09:00→21:57)
[2017-07-28] MEDS: FERROUS SULFATE 325 MG TABLET. PO ×2 (11:56→17:00)
[2017-07-28] MEDS: LEVOTHYROXINE 75 MCG TABLET PO (11:57)
[2017-07-28] MEDS: CHOLECALCIFEROL (VITAMIN D3) 1,000 UNIT TABLET PO (11:57)
[2017-07-28] MEDS: QUEtiapine 25 MG TABLET. PO ×3 (11:57→21:58)
[2017-07-28] MEDS: LACOSAMIDE 200 MG TABLET PO ×2 (11:57→21:57)
[2017-07-28] MEDS: MAGNESIUM OXIDE 400 MG TABLET PO ×3 (11:57→21:58)
[2017-07-28] MEDS: FELBAMATE 400 MG TABLET PO ×3 (11:57→21:58)
[2017-07-28] MEDS: MULTIVITAMIN with MINERAL TABLET. PO (11:57)
[2017-07-28] MEDS: LACTOBACILLUS RHAMNOSUS GG 1 CAPSULE. PO ×2 (11:57→21:57)
[2017-07-28] MEDS: levETIRAcetam 250 MG TABLET PO ×2 (11:58→21:57)
[2017-07-28] MEDS: CALCIUM CARBONATE 500 MG TABLET PO ×2 (11:58→16:30)
[2017-07-28] MEDS: ATORVASTATIN CALCIUM 10 MG TABLET. PO (21:58)
[2017-07-28] MEDS: VENLAFAXINE XR 37.5 MG CAP.ER.24H. PO (21:58)
[2017-07-28] MEDS: PHENobarbital 32.4 MG TABLET. PO (21:58)
[2017-07-29] MEDS: ACETAMINOPHEN 325 MG TABLET. PO ×3 (04:22→15:51)
[2017-07-29 04:39] LABS: ADD MAN DIFF? NO
[2017-07-29 04:49] LABS: BASO # 0.1 x10^3/uL (0.0-0.2); BASO % 1 % (0-3); EOS # 0.5 x10^3/uL (0.0-0.7); EOS % 6 % (0-3); HEMOGLOBIN 10.3 g/dL (12.0-15.5); LYMPH # 1.5 x10^3/uL (1.0-4.8); LYMPH % 18 % (24-48); MEAN CORPUSCULAR HEMOGLOBIN 32 pg (25-35); MEAN CORPUSCULAR HGB CONC 34 g/dL (31-37); MEAN CORPUSCULAR VOLUME 93 fL (79-100); MONO # 0.9 x10^3/uL (0.0-1.1); MONO % 11 % (0-9); NEUT # 5.4 x10^3uL (1.8-7.7); NEUT % 65 % (31-73); PLATELET COUNT 404 x10^3/uL (140-400); RED BLOOD COUNT 3.23 x10^6/uL (3.50-5.40); RED CELL DISTRIBUTION WIDTH 13.2 % (11.5-14.5); WHITE BLOOD COUNT 8.4 x10^3/uL (4.0-11.0)
[2017-07-29 05:15] LABS: ANION GAP 6 (6-14); BLOOD UREA NITROGEN 13 mg/dL (7-20); CALCIUM 9.5 mg/dL (8.5-10.1); CARBON DIOXIDE 29 mmol/L (21-32); CHLORIDE 101 mmol/L (98-107); CREATININE 0.6 mg/dL (0.6-1.0); GFR 100.6; GLUCOSE 104 mg/dL (70-99); POTASSIUM 3.8 mmol/L (3.5-5.1); SODIUM 136 mmol/L (136-145)
[2017-07-29] MEDS: AMINO AC 3%/ELECTROLYTE/GLYCER 1,000 ML IV (08:22)
[2017-07-29] MEDS: FELBAMATE 400 MG TABLET PO ×2 (09:17→14:56)
[2017-07-29] MEDS: LACOSAMIDE 200 MG TABLET PO (09:17)
[2017-07-29] MEDS: FERROUS SULFATE 325 MG TABLET. PO (09:17)
[2017-07-29] MEDS: QUEtiapine 25 MG TABLET. PO ×2 (09:17→14:54)
[2017-07-29] MEDS: LACTOBACILLUS RHAMNOSUS GG 1 CAPSULE. PO (09:17)
[2017-07-29] MEDS: MAGNESIUM OXIDE 400 MG TABLET PO ×2 (09:17→14:54)
[2017-07-29] MEDS: MULTIVITAMIN with MINERAL TABLET. PO (09:17)
[2017-07-29] MEDS: DOCUSATE SODIUM 100 MG CAPSULE. PO (09:17)
[2017-07-29] MEDS: CALCIUM CARBONATE 500 MG TABLET PO (09:17)
[2017-07-29] MEDS: CHOLECALCIFEROL (VITAMIN D3) 1,000 UNIT TABLET PO (09:17)
[2017-07-29] MEDS: levETIRAcetam 250 MG TABLET PO (09:17)
[2017-07-29] MEDS: LEVOTHYROXINE 75 MCG TABLET PO (09:18)
[2017-07-29] MEDS ORDERED: levETIRAcetam 250 MG TABLET PO (21:00)
== END 2017-07-29 16:05 | DRG 25 ==
LOC: 1 WEST ICU 07-21 16:50 → 4 NORTH 07-23 19:54 → ER 09:11 → 1 WEST ICU 11:13
PROC: 00C40ZZ Extirpation of Matter from Intracranial Subdural Space, Open Approach (ICD-10-PCS; principal; 2017-07-17 11:53)
PROC: 05HY33Z Insertion of Infusion Device into Upper Vein, Percutaneous Approach (ICD-10-PCS; 2017-07-17 12:26)
PROC: B244ZZZ Ultrasonography of Right Heart (ICD-10-PCS; 2017-07-17 12:26)
DX: S06.5X9A Traumatic subdural hemorrhage with loss of consciousness of unspecified duration, initial encounter (principal); G93.40 Encephalopathy, unspecified; E43 Unspecified severe protein-calorie malnutrition; G93.6 Cerebral edema; F33.3 Major depressive disorder, recurrent, severe with psychotic symptoms; S22.019A Unspecified fracture of first thoracic vertebra, initial encounter for closed fracture; C67.9 Malignant neoplasm of bladder, unspecified; G30.9 Alzheimer's disease, unspecified; F02.80 Dementia in other diseases classified elsewhere, unspecified severity, without behavioral disturbance, psychotic disturbance, mood disturbance, and anxiety; E83.42 Hypomagnesemia; S06.2X9A Diffuse traumatic brain injury with loss of consciousness of unspecified duration, initial encounter; W06.XXXA Fall from bed, initial encounter; W18.39XA Other fall on same level, initial encounter; D50.9 Iron deficiency anemia, unspecified; E03.9 Hypothyroidism, unspecified; Z68.21 Body mass index [BMI] 21.0-21.9, adult; E78.5 Hyperlipidemia, unspecified; E87.6 Hypokalemia; F41.9 Anxiety disorder, unspecified; G40.909 Epilepsy, unspecified, not intractable, without status epilepticus; M47.812 Spondylosis without myelopathy or radiculopathy, cervical region; N18.2 Chronic kidney disease, stage 2 (mild); Z82.0 Family history of epilepsy and other diseases of the nervous system; Z85.51 Personal history of malignant neoplasm of bladder; Z87.440 Personal history of urinary (tract) infections; Z88.1 Allergy status to other antibiotic agents; Z96.642 Presence of left artificial hip joint; G89.29 Other chronic pain; H66.90 Otitis media, unspecified, unspecified ear; M19.90 Unspecified osteoarthritis, unspecified site; Y93.89 Activity, other specified; Y92.092 Bedroom in other non-institutional residence as the place of occurrence of the external cause
CPT/HCPCS: 36415; 36569; 70450; 71045; 72125; 73000; 73020; 73502; 80048; 80053; 82553; 82962; 83735; 84145; 84484; 85025; 85027; 85610; 85730; 86850; 86900; 86901; 87040; 87641; 87804; 87804-59; 88304; 92526-GN; 92610-GN; 93005; 96365; 97116-GP; 97163-GP; 97164-GP; 97166-GO; 97168; 97530-GO; 97530-GP; 97535-GO; 99291; 99291-25; C1713; C9254; J0690; J1100; J1200; J1953; J2020; J2060; J2405; J2543; J2704; J2710; J3010; J3370; J3475; J3490; J7030; J7040; J7120